=== PATIENT | female | born 1960 | race Caucasian/White ===

== ENCOUNTER 2022-11-22 09:52 | Outpatient (OUT) | payer OTHER, SELFPAY ==
--- NOTE | 2022-11-22 10:04 | MM_ITS ---
Patient: ISA DUMONT Exam Date: 11/22/2022 : 1960 Gender:F Ordering : DR MARIBEL VILLA . Admission #: [id number] Family : Order #: [id number] CLICK HERE TO VIEW EXAM RADIOLOGY REPORT PROCEDURE: MM TOMOSYNTHESIS SCREENING BI COMPARISON: MG MAMM SCREEN 3D LISANDRA CAD, 11/10/2021. MG MAMM SCREEN LISANDRA W CAD, 10/24/2019. MAMMO LISANDRA SCREEN, 12/09/2017. MG MAMM LT UNI W CAD DIG, 10/11/2012. INDICATIONS: Screening mammogram Z12.31 Calculator Name NCI Breast Cancer Risk Assessment Tool 5 Year Breast Cancer Risk 2.90% Lifetime Breast Cancer Risk 11.30% Personal Breast Cancer No Personal Ovarian Cancer No Treatments None Family Cancers Mother with lymphoma cancer at age 67; Grandfather-paternal with lung cancer at age ~60. LOCATION: [facility] BREAST COMPOSITION: Scattered areas fibroglandular density. FINDINGS: DIAGNOSTIC CATEGORY 2--BENIGN FINDING: RIGHT BREAST: No significant suspicious finding. Scattered benign-appearing nodules are present. No significant change has occurred. LEFT BREAST: No significant suspicious finding. Stable biopsy marker clip and mild surrounding architectural distortion within the upper inner quadrant, mid breast. No significant change has occurred. RECOMMENDATIONS: ROUTINE MAMMOGRAM AND CLINICAL EVALUATION IN 12 MONTHS. PLEASE NOTE: A NORMAL MAMMOGRAM DOES NOT EXCLUDE THE POSSIBILITY OF BREAST CANCER. A CLINICALLY SUSPICIOUS PALPABLE LUMP SHOULD BE BIOPSIED. Dictated by: Raffy Weaver M.D. on 11/24/2022 at 09:00 Approved by: Raffy Weaver M.D. on 11/24/2022 at 09:04
== END 2022-11-22 09:53 | disposition home or self-care (01) ==
LOC: MAMMO 09:55
PROVIDERS: PCP Family Medicine; Visit Provider Family Medicine
DX: Z12.31 Encounter for screening mammogram for malignant neoplasm of breast (principal); Z80.1 Family history of malignant neoplasm of trachea, bronchus and lung; Z80.7 Family history of other malignant neoplasms of lymphoid, hematopoietic and related tissues
CPT/HCPCS: 77063; 77067

== ENCOUNTER 2023-10-31 08:52 | Outpatient (OUT) | payer MEDICARE, SELFPAY ==
--- NOTE | 2023-10-31 09:00 | XR_ITS ---
The [address] [address] Patient Name: ISA DUMONT MRN: [id number] date: 1960 Sex: F Assigned Patient Location: [facility] Current Patient Location: [facility] Accession/Order Number: [id number] Exam Date: 10/31/2023 09:02 Report Date: 10/31/2023 09:34 At the request of: MARIBEL VILLA Procedure: XR DEXA axial skeleton EXAMINATION: XR DEXA axial skeleton, 10/31/2023 9:02 AM EDT HISTORY: Screening For Osteoporosis COMPARISON: 2008. TECHNIQUE: Dual-energy X-ray absorptiometry (DEXA) bone density study performed for the axial skeleton. FINDINGS: Bone mineral density AP spine L2-L4 measures 1.193 g/sq cm. T score -0.1. Normal Lowest bone mineral density left femoral neck measures 0.975 g/sq cm. T score -0.5. Normal XR/XR DEXA axial skeleton IMPRESSION: Normal bone mineral density. Low fracture risk Pharmacologic treatment recommendations * No uniform recommendation applies to all patients. Management plans must be individualized. * Consider initiating pharmacologic treatment in postmenopausal women and men >= 50 years of age who have the following: Primary fracture prevention: * T-score <= - 2.5 at the femoral neck, total hip, lumbar spine, 33% radius (some uncertainty with existing data) by DXA. * Low bone mass (osteopenia: T-score between - 1.0 and - 2.5) at the femoral neck or total hip by DXA with a 10-year hip fracture risk >= 3% or a 10-year major osteoporosis-related fracture risk >= 20% (i.e., clinical vertebral, hip, forearm, or proximal humerus) based on the US-adapted FRAXregistered model. Secondary fracture prevention: * Fracture of the hip or vertebra regardless of BMD [4, 5]. * Fracture of proximal humerus, pelvis, or distal forearm in persons with low bone mass (osteopenia: T-score between - 1.0 and - 2.5). The decision to treat should be individualized in persons with a fracture of the proximal humerus, pelvis, or distal forearm who do not have osteopenia or low BMD [12, 13]. Scout MS, Mattie SL, Jose Elias KL, Jennifer EM, Qi KG, AJ, Alfonso ES. The clinician's guide to prevention and treatment of osteoporosis. Osteoporos Int. 2021;33(10):1825-8264. doi: 10.1007/h49752-618-42870-c. Epub 2021Aug 13. Erratum in: Osteoporos Int. 2021Nov 12;: PMID: [id number]; PMCID: [id number]. Electronically authenticated by: LARRY KHAN Date: 10/31/2023 09:34
== END 2023-10-31 08:53 | disposition home or self-care (01) ==
LOC: RAD 08:54
PROVIDERS: PCP Family Medicine; Visit Provider Family Medicine
DX: Z78.0 Asymptomatic menopausal state (principal); Z13.820 Encounter for screening for osteoporosis
CPT/HCPCS: 77080

== ENCOUNTER 2023-11-24 09:47 | Outpatient (OUT) | payer MEDICARE, SELFPAY ==
--- OUTSIDE RECORDS SUMMARY | 2023-11-24 09:50 | XMS_ITS | CCD ---
Author Organization [facility] Care Team Providers Care Rn Hematology Name Role Phone DR MARIBEL VILLA Referring Unavailable DAISY, DR LÓPEZ Attending Unavailable ADISY, DR LÓPEZ Consulting Unavailable DAISY, DR LÓPEZ Primary Care Unavailable DR MARIBEL VILLA Admitting Unavailable DR RAFFY WEAVER Consulting MARIBEL Brennan Attending MARIBEL Brennan Attending MARIBEL Brennan Attending Unavailable Problems Problem Classification Problem Date Documented Date Episodic/Chronic Other screening for suspected conditions (not mental disorders or infectious disease) (4 sources) Encounter for screening mammogram for malignant neoplasm of breast; Translations: [ENC SCR MAMMO MALIG NEOPLASM BREAST] Onset: 11-10-2021 Episodic Residual codes; unclassified (1 source) Family history of malignant neoplasm of trachea, bronchus and lung; Translations: [FAM HX MALIG NEOPLSM TRACH BRON LNG] Onset: 11-14-2021 Episodic Residual codes; unclassified (1 source) Family history of other malignant neoplasms of lymphoid, hematopoietic and related tissues; Translations: [FAM HX OTH MAL ZENA LYMPH HEMATPOETC] Onset: 11-14-2021 Episodic Results Test Name Value Interpretation Reference Range Facil ity MG MAMM SCREEN 3D LISANDRA CADon 11-10-2021 MG MAMM SCREEN 3D LISANDRA CAD Patient: ISA DUMONT. Exam Date: 11/10/2021 : 1960 Gender:F Ordering : DR MARIBEL VILLA . Admission #: [id number] Family : Order #: [id number] CLICK HERE TO VIEW EXAM RADIOLOGY REPORT PROCEDURE: MAMMOGRAM SCREENING 3D BILATERAL CAD COMPARISON: MG MAMM SCREEN LISANDRA W CAD, 10/24/2019. MAMMO LISANDRA SCREEN, 12/09/2017. INDICATIONS: Screening for malignant neoplasm of breast Calculator Name NCI Breast Cancer Risk Assessment Tool 5 Year Breast Cancer Risk 2.80% Lifetime Breast Cancer Risk 11.70% Personal Breast Cancer No Personal Ovarian Cancer No Treatments None Family Cancers Mother with lymphoma cancer at age 67; Grandfather-paternal with lung cancer at age 60. LOCATION: [facility] BREAST COMPOSITION: Scattered areas fibroglandular density. FINDINGS: DIAGNOSTIC CATEGORY 2--BENIGN FINDING: RIGHT BREAST: No significant suspicious finding. Scattered benign-appearing nodules are present. No significant change has occurred. LEFT BREAST: No significant suspicious finding. Scattered benign-appearing nodules are present. Stable biopsy marker clip within upper inner quadrant. No significant change has occurred. RECOMMENDATIONS: ROUTINE MAMMOGRAM AND CLINICAL EVALUATION IN 12 MONTHS. PLEASE NOTE: A NORMAL MAMMOGRAM DOES NOT EXCLUDE THE POSSIBILITY OF BREAST CANCER. A CLINICALLY SUSPICIOUS PALPABLE LUMP SHOULD BE BIOPSIED. Dictated by: Raffy Weaver M.D. on 11/11/2021 at 12:08 Approved by: Raffy Weaver M.D. on 11/11/2021 at 12:39 Normal [facility] Encounters Encounter Date Encounter Type Care Provider Facility Start: 11-08-2023 End: 11-08-2023 ambulatory MARIBEL VILLA Not Available Start: 08-30-2023 End: 08-30-2023 ambulatory MARIBEL VILLA Not Available Start: 05-16-2023 End: 05-16-2023 ambulatory MARIBEL VILLA Not Available Start: 11-10-2021 End: 11-11-[address] MARIBEL VILLA Facility: Payers Date Payer Category Payer Medicare [id number] 2022 Unknown [id number] 1960 Unknown [id number] [id number] 1960 Unknown [id number] 2.16.84 [id number] 1960 Unknown [id number] 2.16.84 [id number] 1960 Unknown [id number] 2.16.84 [id number] Summary Purpose Family History No Family History Records FoundNo Family History Records Found Advance Directives No Advanced Directives Records FoundNo Advanced Directives Records Found Additional Source Comments INFORMATION SOURCE (unrecogn ized section and content) DATE CREATED AUTHOR 11/17/2021 [facility] DATE CREATED AUTHOR 'Jayne ROBLEDO 11/10/2023 [facility] EPIC FOR RECORDS PERTAINING TO PATIENTS WHO ARE OR HAVE BEEN ENROLLED IN A CHEMICAL DEPENDENCY/SUBSTANCEABUSE PROGRAM, SOME INFORMATION MAY BE OMITTED. This clinical summary was aggregated from multiple sources. Caution should be exercised in using it in the provision of clinical care. This summary normalizes information from multiple sources, and as a consequence, information in this document may materially change the coding, format and clinical context of patient data. In addition, data may be omitted in some cases. CLINICAL DECISIONS SHOULD BE BASED ON THE PRIMARY CLINICAL RECORDS. [facility] [employer] provides no warranty or guarantee of the accuracy or completeness of information in this document.
--- NOTE | 2023-11-24 10:22 | MM_ITS ---
Patient Name: ISA DUMONT MR#: [id number] : 1960 Exam Date: 11/24/2023 Ordering Doctor: DR MARIBEL VILLA . RADIOLOGY REPORT PROCEDURE: MM TOMOSYNTHESIS SCREENING BI COMPARISON: MM TOMOSYNTHESIS SCREENING BI, 11/22/2022. MG MAMM SCREEN 3D LISANDRA CAD, 11/10/2021. INDICATIONS: Screening Calculator Name NCI Breast Cancer Risk Assessment Tool 5 Year Breast Cancer Risk 3.00% Lifetime Breast Cancer Risk 11.00% Personal Breast Cancer No Personal Ovarian Cancer No Treatments None Family Cancers Mother with lymphoma cancer at age 67; Grandfather-paternal with lung cancer at age ~60; Brother with colon cancer at age 63; Father with skin cancer at age 75. LOCATION: [facility] BREAST COMPOSITION: There are scattered areas of fibroglandular density. FINDINGS: DIAGNOSTIC CATEGORY 2--BENIGN FINDING. NO CHANGE FROM COMPARISON. Scattered benign-appearing calcifications are present. Scattered benign-appearing lymph nodes are present. RIGHT BREAST: No significant suspicious finding. LEFT BREAST: No significant suspicious finding. RECOMMENDATIONS: ROUTINE MAMMOGRAM AND CLINICAL EVALUATION IN 12 MONTHS. PLEASE NOTE: A NORMAL MAMMOGRAM DOES NOT EXCLUDE THE POSSIBILITY OF BREAST CANCER. A CLINICALLY SUSPICIOUS PALPABLE LUMP SHOULD BE BIOPSIED. Dictated by: David Hernandez MD on 11/24/2023 at 12:40 Approved by: David Hernandez MD on 11/24/2023 at 12:41
== END 2023-11-24 09:48 | disposition home or self-care (01) ==
LOC: MAMMO 09:47
PROVIDERS: PCP Family Medicine; Visit Provider Family Medicine
DX: Z12.31 Encounter for screening mammogram for malignant neoplasm of breast (principal); Z80.7 Family history of other malignant neoplasms of lymphoid, hematopoietic and related tissues; Z80.1 Family history of malignant neoplasm of trachea, bronchus and lung; Z80.0 Family history of malignant neoplasm of digestive organs; Z80.8 Family history of malignant neoplasm of other organs or systems
CPT/HCPCS: 77063; 77067

== ENCOUNTER 2024-10-30 12:34 | Outpatient (OUT) | payer MEDICARE, SELFPAY ==
--- OUTSIDE RECORDS SUMMARY | 2024-10-30 12:37 | XMS_ITS | Encounter Summary ---
Author Organization [facility] Address [address] [place] [address] Care Team Providers Care Qa Intern Name Role Phone Luis iVlla MD Primary Care Provider + [phone] Encounter Details Date Type Department Care Team ([facility] st Contact Info) Description 11/24/2023 [facility] Result Encounter [facility] External Department Unsolicited Luis Villa MD [address] [place] [address] Social History Tobacco Use Types Packs/Day Years Used Date Smoking Tobacco: Never Smokeless Tobacco: Never Alcohol Use Standard Drinks/Week Comments Never 0 (1 standard drink = 0.6 oz pure alcohol) Caffeine intake: 3-4 cups per day of coffee and soda PHQ-2 Answer Date Recorded Patient Health Questionnaire-2 Score 2 08/30/2023 Education Answer Date Recorded What is the highest level of school you have completed or the highest degree you have received? Some college, no degree 09/29/2022 Comments No Sex and Gender Information Value Date Recorded Sex Assigned at Not on file Legal Sex Female 6:40 PM EDT Gender Identity Not on file Sexual Orientation Not on file Occupation Industry Job Start Date Job End Date Retired Not on file Not on file Not on file documented as of this encounter Plan of Treatment Not on file documented as of this encounter Procedures Procedure Name Priority Date/Time Associated Diagnosis Comments MM TOMOSYNTHESIS SCREENING BI 11/24/2023 12:41 PM EDT documented in this encounter Results * MM TOMOSYNTHESIS SCREENING BI (11/24/2023 12:41 PM EDT) Anatomical Region Laterality Modality Other 11/24/2023 12:4 1 PM EDT Narrative 11/24/2023 12:42 PM EDT The [address] [address] Mammography Report Signed Patient: ISA CARDOZA MR#: [id number] : 1960 Acct:[id number] Age/Sex: 63 / F ADM Date: 11/24/23 Loc: MAMMO Attending Dr: LUIS VILLA Ordering Physician: LUIS VILLA Results: Date of Service: 11/24/23 Follow Up: Procedure(s): MM tomosynthesis screening BI Accession Number(s): [id number] cc: LUIS VILLA Patient Name: ISA CARDOZA MR#: [id number] : 1960 Exam Date: 11/24/2023 Ordering Doctor: DR LUIS VILLA . RADIOLOGY REPORT PROCEDURE: MM TOMOSYNTHESIS SCREENING BI COMPARISON: MM TOMOSYNTHESIS SCREENING BI, 11/22/2022. MG MAMM SCREEN 3D LISANDRA CAD, 11/10/2021. INDICATIONS: Screening Calculator Name NCI Breast Cancer Risk Assessment Tool 5 Year Breast Cancer Risk 3.00% Lifetime Breast Cancer Risk 11.00% Personal Breast Cancer No Personal Ovarian Cancer No Treatments None Family Cancers Mother with lymphoma cancer at age 67; Grandfather-paternal with lung cancer at age 60; Brother with colon cancer at age 63; Father with skin cancer at age 75. LOCATION: [facility] BREAST COMPOSITION: There are scattered areas of fibroglandular density. FINDINGS: DIAGNOSTIC CATEGORY 2--BENIGN FINDING. NO CHANGE FROM COMPARISON. Scattered benign-appearing calcifications are present. Scattered benign-appearing lymph nodes are present. RIGHT BREAST: No significant suspicious finding. LEFT BREAST: No significant suspicious finding. RECOMMENDATIONS: ROUTINE MAMMOGRAM AND CLINICAL EVALUATION IN 12 MONTHS. PLEASE NOTE: A NORMAL MAMMOGRAM DOES NOT EXCLUDE THE POSSIBILITY OF BREAST CANCER. A CLINICALLY SUSPICIOUS PALPABLE LUMP SHOULD BE BIOPSIED. Dictated by: David Hernandez MD on 11/24/2023 at 12:40 Approved by: David Hernandez MD on 11/24/2023 at 12:41 Dictated By: David Hernandez M.D. Signed By: 11/24/23 1242 DD/ 1241 TD/TT: Hand Bootmaker: Procedure Note Radiology, Radiologist, - 11/24/2023 [place] [address] Mammography Report Signed Patient: ISA CARDOZA JMR#: [id number] : 9Acct:[id number] Age/Sex: 63 / FADM Date: 11/24/23 Loc: MAMMO Attending Dr: LUIS VILLA Ordering Physician: LUIS VILLAResults: Date of Service: 11/24/23Follow Up: Procedure(s): MM tomosynthesis screening BI Accession Number(s): [id number] cc: LUIS VILLA Patient Name: ISA CARDOZA MR#: [id number] : 1960 Exam Date: 11/24/2023 Ordering Doctor: DR LUIS VILLA . RADIOLOGY REPORT PROCEDURE: MM TOMOSYNTHESIS SCREENING BI COMPARISON: MM TOMOSYNTHESIS SCREENING BI, 11/22/2022. MG MAMM MDWAEN3A LISANDRA CAD, 11/10/2021. INDICATIONS: Screening Calculator Name NCI Breast Cancer Risk Assessment Tool 5 Year Breast Cancer Risk 3.00% Lifetime Breast Cancer Risk 11.00% Personal Breast Cancer No Personal Ovarian Cancer No Treatments None Family Cancers Mother with lymphoma cancer at age 67;Grandfather-paternal with lung cancer at age 60; Brother with colon cancer at age 63; Father with skin cancer at age 75. LOCATION: [facility] BREAST COMPOSITION: There are scattered areas of fibroglandulardensity. FINDINGS: DIAGNOSTIC CATEGORY 2--BENIGN FINDING. NO CHANGE FROM COMPARISON.Scattered benign-appearing calcifications are present. Scattered benign-appearinglymph nodes are present. RIGHT BREAST: No significant suspicious finding. LEFT BREAST: No significant suspicious finding. RECOMMENDATIONS: ROUTINE MAMMOGRAM AND CLINICAL EVALUATION IN 12 MONTHS. PLEASE NOTE: A NORMAL MAMMOGRAM DOES NOT EXCLUDE THE POSSIBILITY OFBREAST CANCER. A CLINICALLY SUSPICIOUS PALPABLE LUMP SHOULD BE BIOPSIED. Dictated by: David Hernandez MD on 11/24/2023 at 12:40 Approved by: David Hernandez MD on 11/24/2023 at 12:41 Dictated By: David Hernandez M.D. Signed By:11/24/23 1242 DD/ 1241 TD/TT: Hand Bootmaker: us Luis Villa MD [facility] Final Resu lt documented in this encounter Visit Diagnoses Not on filedocumented in this encounter Additional Health Concerns Assessment Noted Time PHQ-9 Depression Total Score: 10 024 9:00 AM EDT documented as of this encounter Care Teams Qa Intern Relationship Specialty Start Date End Date Luis Villa MD PCP - General Family Medicine 09/22/22 documented as of this encounter
--- OUTSIDE RECORDS SUMMARY | 2024-10-30 12:37 | XMS_ITS | Encounter Summary ---
Author Organization [facility] Address [address] [place] [address] Care Team Providers Care Director Of Product Development Name Role Phone Luis Mcnally MD Primary Care Provider [phone] Encounter Details Date Type Department Care Team ([facility] st Contact Info) Description 09/06/2023 Orders Only [facility] [address] [place] [id number] Amber Diego TORY Screening for osteoporosis; Post menopausal syndrome; Encounter for wellness examination in adult; Encounter for screening mammogram for malignant neoplasm of breast Social History Tobacco Use Types Packs/Day Years [...] Procedure Name Priority Date/Time Associated Diagnosis Comments MAMMO 3D,BILATERAL SCREENING MAMMOGRAM WITH TOMOSY Routine 11/22/2022 9:38 AM EDT documented in this encounter Results * MAMMO 3D,BILATERAL SCREENING MAMMOGRAM WITH TOMOSY (11/22/2022 9:38 AM EDT) Anatomical Region Laterality Modality Radiographic Rosario ging us Luis Mcnally MD IMG XR PROCEDURES Final Resu lt documented in this encounter Visit Diagnoses Diagnosis Screening for osteoporosis Special screening for osteoporosis Post menopausal syndrome Asymptomatic postmenopausal status (age-related) (natural) Encounter for wellness examination in adult Encounter for screening mammogram for malignant neoplasm of breast documented in this encounter Additional Health Concerns Assessment Noted Time PHQ-9 Depression Total Score: 10 024 9:00 AM EDT documented as of this encounter Care Teams Director Of Product Development Relationship Specialty Start Date End Date Luis Mcnally MD PCP - General Family Medicine 09/22/22 documented as of this encounter
--- OUTSIDE RECORDS SUMMARY | 2024-10-30 12:37 | XMS_ITS | Encounter Summary ---
Author Organization [facility] Address [address] [place] [address] Care Team Providers Care Mechanical Integrity Engineer Name Role Phone Luis Mcnally MD Primary Care Provider [phone] Encounter Details Date Type Department Care Team (Late st Contact Info) Description 11/22/2022 Abstract [facility] [address] [place] [address] Luis Mcnally MD [address] [place] [address] Social History Tobacco Use Types Packs/Day Years Used Date Smoking Tobacco: Never Smokeless Tobacco: Never Alcohol Use Standard Drinks/Week Comments Never 0 (1 standard drink = 0.6 oz pure alcohol) Caffeine intake: 3-4 cups per day of coffee and soda PHQ-2 Answer Date Recorded Patient Health Questionnaire-2 Score 0 10/25/2022 Education Answer Date Recorded What is the [...] file Not on file Not on file COVID-19 Exposure Response Date Recorded In the last 10 days, have yo u been in contact with someone who was confirmed or suspected to have Coronavirus/COVID-19? No / Unsure 10/25/2022 10:30 AM EDT documented as of this encounter Plan of Treatment Not on file documented as of this encounter Visit Diagnoses Not on filedocumented in this encounter Care Teams Mechanical Integrity Engineer Relationship Specialty Start Date End Date Luis Mcnally MD PCP - General Family Medicine 09/22/22 documented as of this encounter
--- OUTSIDE RECORDS SUMMARY | 2024-10-30 12:37 | XMS_ITS | Clinical Summary ---
Author Organization [facility] Address [address] [place] [address] Care Team Providers Care Shade Matcher Name Role Phone Luis Villa MD Primary Care Provider + [phone] Allergies Active Allergy Reactions Criticality Noted Date Comments Cephalexin Rash Low 09/28/2022 Glycerin Low 09/28/2022 Other Reaction(s): Unknown Medications cholecalciferol (Vitamin D-3) 25 MCG (1000 UT) capsule Take 1 capsule by mouth 1 (one) time each day at the same time. Active ibuprofen 200 MG tablet Take 200 mg by mouth every 8 (eight) hours if needed for moderate pain. Active Multiple Vitamin (multivitamin) capsule Take 1 capsule by mouth in the morning. Active fexofenadine (Karla) 180 MG tablet Take 180 mg by mouth in the morning. Active Misc Natural Products (ELDERBERRY ZINC/VIT C/IMMUNE MT) Use 1 tablet in the mouth or throat in the morning. Active albuterol HFA 90 mcg/act inhalerIndications :Asthma Inhale 1 puff in the morning and 1 puff at noon and 1 puff in the evening and 1 puff before bedtime. 18 g 5 3 Active FIBER, GUAR GUM, PO Take 4 g by mouth Daily Active montelukast (Singulair) 10 MG tabletIndications: Mild intermittent asthma without complication (HCC) Take 1 tablet (10 mg) by mouth at bedtime 90 tablet 1 5 025 Active atorvastatin (Lipitor) 80 MG tabletIndications: Mixed hyperlipidemia Take 1 tablet (80 mg) by mouth at bedtime 90 tablet 1 5 025 Active azelastine (Astelin) 0.1 % nasal sprayIndications:N on-seasonal allergic rhinitis, unspecified trigger Administer 2 sprays into each nostril in the morning and 2 sprays before bedtime. 90 mL 1 5 025 Active Active Problems Problem Noted Date Diagnosed Date Body mass index (BMI) 40.0-44.9, adult 4 Allergic rhinitis 09/28/2022 Chronic eczema 09/28/2022 Low HDL (under 40) 09/28/2022 Mild intermittent asthma without complication Mixed hyperlipidemia 09/28/2022 Morbid (severe) obesity due to excess calories 0 09/28/2022 NAFLD (nonalcoholic fatty liver disease) 023 Post menopausal syndrome 09/28/2022 Postmenopausal atrophic vaginitis 09/28/2022 Pronation deformity of right foot 09/28/2022 Resolved Problems Problem Noted Date Diagnosed Date Resolved Date Hearing loss of right ear 09/28/2022 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 08/30/2023 Encounters Date Type Department Care Team Description 08/30/2024 10:00 AM EDT Office Visit [facility] [address] [place] [address] Luis Villa MD Encounter for Medicare annual wellness exam (Primary Dx); Advance directive in chart; Encounter for screening for other disorder; Screening for alcohol problem; Screening mammogram, encounter for; Morbid (severe) obesity due to excess calories ([facility]); Heart murmur; Palpitations; Mild intermittent asthma without complication (HCC); Body mass index (BMI) 40.0-44.9, adult ([facility]); Mixed hyperlipidemia ; Low HDL (under 40) 08/30/2024 Bamboo flowsheet [facility] [address] [place] [address] Luis Villa MD 08/30/2024 Travel from Last 3 Months Immunizations Immunization Administration Dates Next Due Influenza, High Dose Seasona l, Preservative Free 02/07/2017 Influenza, injectable, quadr ivalent, preservative free 01/11/2020,02/12/2019,02/05/2018,2014 Influenza, seasonal, injectable 01/20/2021 Zoster, Recombinant 04/04/2021,02/03/2021 Family History Medical History Relation Name Comments CABG Brother leaky valve Coronary artery disease Brother Michel Mathews Brother Heart disease Brother Other cancer Brother cancerous tumor removed from appendix Kidney disease Father Liver disease Father CABG Mother Cancer Mother Heart disease Mother Lymphoma Mother Drug abuse Other Opiate addict - clean and sober Colon cancer Paternal Great-Grandmother Hyperlipidemia Son Breast cancer Neg Hx Ovarian cancer Neg Hx Relation Name Status Comments Brother 2 brothers Father Alive Mother Alive Other Paternal Great-Grandmother Alive Son Alive Family h/o Social History Tobacco Use Types Packs/Day Years Used Date Smoking Tobacco: Never Smokeless Tobacco: Never Tobacco Cessation:Counseling Given: Yes Alcohol Use Standard Drinks/Week Comments Never 0 (1 standard drink = 0.6 oz pure alcohol) Caffeine intake: 3-4 cups per day of coffee and soda PHQ-2 Answer Date Recorded Patient Health Questionnaire-2 Score 1 08/30/2024 Education Answer Date Recorded What is the [...] file Not on file Not on file Last Filed Vital Signs Vital Sign Reading Time Taken Comments Blood Pressure 120/70 08/30/2024 10:01 AM EDT Pulse 72 08/30/2024 10:01 AM EDT Temperature - - Respiratory Rate - - Oxygen Saturation 96% 08/30/2024 10:01 AM EDT Inhaled Oxygen Concentration - - Weight 106 kg (234 lb 8 oz) 08/30/2024 10:01 AM EDT Height 161.3 cm (5' 3.5 ) 08/30/2024 10:01 AM ED T Body Mass Index 40.89 08/30/2024 10:01 AM EDT Plan of Treatment Health Maintenance Due Date Last Done Comments CT Colonography 1960 FIT-DNA 1960 FOBT 1960 Sigmoidoscopy 1960 Mammogram 11/23/2024 11/24/2023, 08/0 10/2022, 11/10/2021, Additional history exists Influenza Vaccine (#1) 2024 , 01/11/2020, 02/12/2019, Additional history exists FIT 02/01/2025 02/02/2024 Pneumococcal Vaccine: 65+ Years (1 of 2 - PCV) 08/23/2025 Postponed from 1977 (Patient Refused) Medicare Annual Wellness (AWV) 08/30/2025 08/30/2024, 08/30/2023, 09/28/2022 Colonoscopy 01/05/2032 01/04/2022, 10/17, 09/26/2008 Colorectal Cancer Screening 01/05/2032 Procedures Procedure Name Priority Date/Time Associated Diagnosis Comments FECAL IMMUNOCHEMICAL Routine 02/02/2024 7:51 AM EDT MM TOMOSYNTHESIS SCREENING BI 11/24/2023 12:41 PM EDT COLONOSCOPY Routine 01/04/2022 12:00 PM EDT Encounter for screening for malignant neoplasm of colon from Last 3 Months or Most Recently Relevant to Health Maintenance Results * Fecal immunochemical (02/02/2024 7:51 AM EDT) Stool Rectal contents / Unknown us Noms Provider Unallocated MD LAB BODY FLUIDS AND STOOLS ORDERABLES Final Result * MM TOMOSYNTHESIS SCREENING BI (11/24/2023 12:41 PM EDT) Anatomical Region Laterality Modality Other 11/24/2023 12:4 1 PM EDT Narrative 11/24/2023 12:42 PM EDT [address] [address] Mammography Report Signed Patient: ISA CARDOZA MR#: [id number] : 1960 Acct:[id number] Age/Sex: 63 / F ADM Date: 11/24/23 Loc: MAMMO Attending Dr: LUIS VILLA Ordering Physician: LUIS VILLA Results: Date of Service: 11/24/23 Follow Up: Procedure(s): MM tomosynthesis screening BI Accession Number(s): [id number] cc: LUIS VILLA Patient Name: ISA CARDOZA MR#: [id number] : 1960 Exam Date: 11/24/2023 Ordering Doctor: [...] skin cancer at age 73. LOCATION: [facility] BREAST COMPOSITION: There are scattered areas of [...] Signed By: 11/24/23 1242 DD/ 1241 TD/TT: Radiation Officer: Procedure Note Radiology, Radiologist, - 11/24/2023 [place] [address] Mammography Report Signed Patient: ISA CARDOZA JMR#: [id number] : 9Acct:[id number] Age/Sex: 63 / FADM Date: 11/24/23 Loc: MAMMO Attending Dr: LUIS VILLA Ordering Physician: LUIS VILLAResults: Date of Service: 11/24/23Follow Up: Procedure(s): MM tomosynthesis screening BI Accession Number(s): [id number] cc: LUIS VILLA Patient Name: ISA CARDOZA MR#: [id number] : 1960 Exam Date: 11/24/2023 Ordering Doctor: DR LUIS VILLA . RADIOLOGY REPORT PROCEDURE: MM TOMOSYNTHESIS SCREENING BI COMPARISON: MM TOMOSYNTHESIS SCREENING BI, 11/22/2022. MG MAMM [id number] LISANDRA CAD, 11/10/2021. INDICATIONS: Screening Calculator Name [...] skin cancer at age 73. LOCATION: [facility] BREAST COMPOSITION: There are scattered areas of [...] M.D. Signed By:11/24/23 1242 DD/ 1241 TD/TT: Radiation Officer: us Luis Villa MD [facility] Final Resu lt * Colonoscopy (01/04/2022 12:00 PM EDT) Anatomical Region Laterality Modality Endoscopy 01/04/2022 12:0 0 PM EDT Narrative 01/04/2022 12:00 PM EDT PERFORMED AT [facility] LOCATION:[id number] Procedure Note CONVERSION, GENERIC - 09/01/2022 PERFORMED AT [facility] LOCATION:[id number] Tang Suzan Isidoro DO ENDOSCOPY PROCEDURE ORDER RAN Final Result from Last 3 Months or Most Recently Relevant to Health Maintenance Insurance [employer] Advance Directives Documents on File Type Date Recorded Patient Grooming Assistant Expl anation Power of Lactation Consultant 05/16/2023 9:27 AM 03-31 Power Of Lactation Consultant Advance Directives and Living Will 05/16/2023 9:26 AM 2009-09-17 Living Wi Care Teams Shade Matcher Relationship Specialty Start Date End Date Luis Villa MD PCP - General Family Medicine 09/22/22
--- OUTSIDE RECORDS SUMMARY | 2024-10-30 12:37 | XMS_ITS | Clinical Summary ---
Author Organization [employer] tem Address [id number] [address] [place] [address] Care Team Providers Care Geriatrics Physician Name Role Phone Unavailable Primary Care Provider Unavailabl e Immunizations Immunization Administration Dates Next Due COVID-19, mRNA, LNP-S, PF, 100mcg/0.5mL Dose ,07/04/2020 Social History Tobacco Use Types Packs/Day Years Used Date Smoking Tobacco: Never Assessed Childcare Answer Date Recorded Childcare Unknown 07/02/2020 Employment Answer Date Recorded Employment Unknown 07/02/2020 Purpose - Life Answer Date Recorded Purpose and direction in life Unknown Comments Unknown Sex and Gender Information Value Date Recorded Sex Assigned at Not on file Legal Sex Female 12:08 PM EDT Gender Identity Not on file Sexual Orientation Not on file Plan of Treatment Health Maintenance Due Date Last Done Comments Depression Screening 1970 Tobacco Screening 1970 Adult BMI Screening 1976 DTaP,Tdap and Td Vaccines (1 - Tdap) 1977 Zoster (Shingles) Vaccine (1 of 2) 2008 Fall Risk Screening 08/17/2023 COVID-19 Vaccine (3 - 2023-2 5 season) 2023 08/01/2020, 07/04/2020 Influenza Vaccine 12/17/2024 01/11/2020, , 02/05/2018, Additional history exists Medical Devices Not on file Insurance [employer]
--- OUTSIDE RECORDS SUMMARY | 2024-10-30 12:37 | XMS_ITS | Encounter Summary ---
Author Organization [facility] Address [address] [place] [address] Care Team Providers Care Digital Sales Assistant Name Role Phone Luis Mcnally MD Primary Care Provider + [phone] Encounter Details Date Type Department Care Team ([facility] st Contact Info) Description 02/15/2024 Orders Only [facility] [address] [facility] [address] [place] [address] Unallocated, Noms Provider, [address] [place] [address] Social History Tobacco Use Types Packs/Day Years [...] FECAL IMMUNOCHEMICAL Routine 02/02/2024 7:51 AM EDT documented in this encounter Results * Fecal immunochemical (02/02/2024 7:51 AM EDT) Stool Rectal contents / Unknown us Noms Provider Unallocated LAB BODY FLUIDS AND STOOLS ORDERABLES Final Result documented in this encounter Visit Diagnoses Not on filedocumented in this encounter Additional Health Concerns Assessment Noted Time PHQ-9 Depression Total Score: 10 08/29/ 024 9:00 AM EDT documented as of this encounter Care Teams Digital Sales Assistant Relationship Specialty Start Date End Date Luis Mcnally MD PCP - General Family Medicine 09/22/22 documented as of this encounter
--- OUTSIDE RECORDS SUMMARY | 2024-10-30 12:37 | XMS_ITS | Encounter Summary ---
Author Organization [facility] Address [address] [place] [address] Care Team Providers Care Director Independent Name Role Phone Luis Mcnally MD Primary Care Provider [phone] Reason for Visit * Reason Comments Med Refill Encounter Details Date Type Department Care Team (Late st Contact Info) Description 12/13/2023 Refill [facility] [address] [place] [address] Luis Mcnally MD [address] [place] [id number] Mild intermittent asthma without complication (HCC) Social History Tobacco Use Types Packs/Day Years [...] documented as of this encounter Visit Diagnoses Diagnosis Mild intermittent asthma without complication (HCC) documented in this encounter Additional Health Concerns Assessment Noted Time PHQ-9 Depression Total Score: 10 024 9:00 AM EDT documented as of this encounter Care Teams Director Independent Relationship Specialty Start Date End Date Luis Mcnally MD PCP - General Family Medicine 09/22/22 documented as of this encounter
--- OUTSIDE RECORDS SUMMARY | 2024-10-30 12:37 | XMS_ITS | Encounter Summary ---
Author Organization [facility] Address [address] [place] [address] Care Team Providers Care Senior Advisor Name Role Phone Luis Villa MD Primary Care Provider + [phone] Encounter Details Date Type Department Care Team ([facility] st Contact Info) Description 10/31/2023 Clinisync Result Encounter [facility] External Department Unsolicited Luis Villa MD [address] [facility] [address] [place] [address] Social History Tobacco Use Types Packs/Day Years [...] Procedure Name Priority Date/Time Associated Diagnosis Comments XR DEXA AXIAL SKELETON 10/31/2023 9:34 AM EDT documented in this encounter Results * XR DEXA AXIAL SKELETON (10/31/2023 9:34 AM EDT) Anatomical Region Laterality Modality Other 10/31/2023 9:34 AM EDT Narrative 10/31/2023 9:36 AM EDT [address] [address] XRay Report Signed Patient: ISA CARDOZA MR#: [id number] : 1960 Acct:[id number] Age/Sex: 63 / F ADM Date: 10/31/23 Loc: RAD Attending Dr: LUIS VILLA Ordering Physician: LUIS VILLA Date of Service: 10/31/23 Procedure(s): XR DEXA axial skeleton Accession Number(s): [id number] cc: LUIS VILLA [address] [address] Patient Name: ISA CARDOZA MRN: [id number] date: 1960 Sex: F Assigned Patient Location: RAD Current Patient Location: RAD Accession/Order Number: [id number] Exam Date: 10/31/2023 09:02 Report Date: 10/31/2023 09:34 At the request of: LUIS VILLA Procedure: XR DEXA axial skeleton EXAMINATION: XR DEXA axial skeleton, 10/31/2023 9:02 AM EDT HISTORY: Screening For Osteoporosis COMPARISON: 2008. TECHNIQUE: Dual-energy X-ray absorptiometry (DEXA) bone density study performed for the axial skeleton. FINDINGS: Bone mineral density AP spine L2-L4 measures 1.193 g/sq cm. T score -0.1. Normal Lowest bone mineral density left femoral neck measures 0.975 g/sq cm. T score -0.5. Normal XR/XR DEXA axial skeleton IMPRESSION: Normal bone mineral density. Low fracture risk Pharmacologic treatment recommendations * No uniform recommendation applies to all patients. Management plans must be individualized. * Consider initiating pharmacologic treatment in postmenopausal women and men >= 50 years of age who have the following: Primary fracture prevention: * T-score <= - 2.5 at the femoral neck, total hip, lumbar spine, 33% radius (some uncertainty with existing data) by DXA. * Low bone mass (osteopenia: T-score between - 1.0 and - 2.5) at the femoral neck or total hip by DXA with a 10-year hip fracture risk >= 3% or a 10-year major osteoporosis-related fracture risk >= 20% (i.e., clinical vertebral, hip, forearm, or proximal humerus) based on the US-adapted FRAXregistered model. Secondary fracture prevention: * Fracture of the hip or vertebra regardless of BMD [4, 5]. * Fracture of proximal humerus, pelvis, or distal forearm in persons with low bone mass (osteopenia: T-score between - 1.0 and - 2.5). The decision to treat should be individualized in persons with a fracture of the proximal humerus, pelvis, or distal forearm who do not have osteopenia or low BMD [12, 13]. Scout MS, Mattie SL, Jose Elias KL, Jennifer EM, Qi KG, AJ, Alfonso ES. The clinician's guide to prevention and treatment of osteoporosis. Osteoporos Int. 2021;33(10):4212-6711. doi: 10.1007/e08677-873-22608-f. Epub 2021Aug 13. Erratum in: Osteoporos Int. 2021Nov 12;: PMID: 23915314; PMCID: [id number]. Electronically authenticated by: LARRY KHAN Date: 10/31/2023 09:34 Dictated By: Larry Khan M.D. Signed By: 10/31/2336 DD/ TD/TT: Primary School Principal: Procedure Note Radiology, Radiologist, - 10/31/2023 [place] [address] XRay Report Signed Patient: ISA CARDOZA JMR#: [id number] : 9Acct:[id number] Age/Sex: 63 / FADM Date: 10/31/23 Loc: RAD Attending Dr: LUIS VILLA Ordering Physician: LUIS VILLA Date of Service: 10/31/23 Procedure(s): XR DEXA axial skeleton Accession Number(s): [id number] cc: LUIS VILLA [address] [place] [address] Patient Name: ISA CARDOZA MRN: [id number] date: 1960 Sex: F Assigned Patient Location: [facility] Current Patient Location: [facility] Accession/Order Number: [id number] Exam Date: 10/31/2023 09:02 Report Date: 10/31/2023 09:34 At the request of: LUIS VILLA Procedure: XR DEXA axial skeleton EXAMINATION: XR DEXA axial skeleton, 10/31/2023 9:02 AM EDT HISTORY: Screening For Osteoporosis COMPARISON: 2008. TECHNIQUE: Dual-energy X-ray absorptiometry (DEXA) bone density study performed for the axial skeleton. FINDINGS: Bone mineral density AP spine L2-L4 measures 1.193 g/sq cm. T score -0.1. Normal Lowest bone mineral density left femoral neck measures 0.975 g/sq cm. Tscore -0.5. Normal XR/XR DEXA axial skeleton IMPRESSION: Normal bone mineral density. Low fracture risk Pharmacologic treatment recommendations * No uniform recommendation applies to all patients. Management plans mustbe individualized. * Consider initiating pharmacologic treatment in postmenopausal women andmen >= 50 years of age who have the following: Primary fracture prevention: * T-score <= - 2.5 at the femoral neck, total hip, lumbar spine, 33%radius (some uncertainty with existing data) by DXA. * Low bone mass (osteopenia: T-score between - 1.0 and - 2.5) at thefemoral neck or total hip by DXA with a 10-year hip fracture risk >= 3% or t77-exlh major osteoporosis-related fracture risk >= 20% (i.e., clinical vertebral, hip, forearm, or proximal humerus) based on the US-adapted FRAXregisteredmodel. Secondary fracture prevention: * Fracture of the hip or vertebra regardless of BMD [4, 5]. * Fracture of proximal humerus, pelvis, or distal forearm in persons withlow bone mass (osteopenia: T-score between - 1.0 and - 2.5). The decision totreat should be individualized in persons with a fracture of the proximalhumerus, pelvis, or distal forearm who do not have osteopenia or low BMD [12, 13]. Scout MS, Mattie SL, Jose Elias DORADO, Jennifer EM, Qi KG, AJ,Alfonso ES. The clinician's guide to prevention and treatment of osteoporosis.Osteoporos Int. 2021;33(10):6053-9116. doi: 10.1007/d73435-170-60575-a. Epub . Erratum in: Osteoporos Int. 2021Nov 12;: PMID: 88360253; PMCID: [id number]. Electronically authenticated by: LARRY KHAN Date: 10/31/2023 09:34 Dictated By: Larry Khan M.D. Signed By:10/31/2336 DD/ 3 TD/TT: Primary School Principal: us Luis Villa MD [facility] Final Resu lt documented in this encounter Visit Diagnoses Not on filedocumented in this encounter Additional Health Concerns Assessment Noted Time PHQ-9 Depression Total Score: 10 024 9:00 AM EDT documented as of this encounter Care Teams Senior Advisor Relationship Specialty Start Date End Date Luis Villa MD PCP - General Family Medicine 09/22/22 documented as of this encounter
--- NOTE | 2024-10-30 13:00 | CA_ITS ---
Patient Name: ISA DUMONT MR#: [id number] : 1960 Exam Date: 10/30/2024 Ordering Doctor: DR MARIBEL VILLA . ECHOCARDIOGRAM REPORT PROCEDURE: CA ECHO DOPPLER COMPLETE INDICATIONS: Heart murmur, palpitations COMPARISON: None. DESCRIPTION: COMPLETE ECHOCARDIOGRAM Real-time transthoracic echocardiography with 2D, M-mode, spectral and color flow Doppler performed. QUALITY: Technical quality was good. LEFT VENTRICLE: Normal chamber size. Normal left ventricular wall thickness. LV EF: Global left ventricular systolic function is hyperdynamic; visually estimated ejection fraction is 65-70%. No significant wall motion abnormalities. DIASTOLIC: Normal diastolic function. ATRIAL SEPTUM: Visually appears intact. LEFT ATRIUM: Normal chamber size. RIGHT ATRIUM: Normal chamber size. RIGHT VENTRICLE: Normal chamber size. Normal right ventricular systolic function. TRICUSPID VALVE: Normal mobility and thickness. No stenosis with trivial regurgitation. Doppler studies reveal mildly (35-45) elevated right-sided pressures. RVSP 36 mmHg MITRAL VALVE: Normal mobility and thickness. No evidence of mitral valve stenosis. There is no mitral annular calcification. Trivial mitral regurgitation. AORTIC VALVE: Normal trileaflet appearance. No visible sclerosis. Normal leaflet mobility. No evidence of aortic valve stenosis. No aortic regurgitation. AORTIC ROOT: Normal diameter and appearance. Ascending aorta is normal in size. PULMONIC VALVE: Normal thickness and mobility. No stenosis. No regurgitation. PERICARDIUM: Anterior free space; trivial effusion versus fat pad. IVC: Collapses with inspiration. IVC is normal in size. CONCLUSION: 1. Global left ventricular systolic function is hyperdynamic; visually estimated ejection fraction is 65 to 70% 2. Normal right ventricular size and systolic function 3. Normal diastolic function 4. The left atrium is normal in size 5. No significant valvular abnormalities 6. Anterior free space; trivial effusion versus fat pad Adult Echocardiography Procedure Report Left Ventricle LVEDD (3.7 - 5.6 cm): 4.65 cm LVESD (2.2 - 4.0 cm): 2.75 cm LVIVS thickness (0.6 - 1.2 cm): 0.98 cm LVPW thickness (0.5 - 1.0 cm): 0.93 cm e': 0.11 m/s E - e': 6.59 LVOT Max Gradient: 6.87 mm[Hg] LVOT Area (cm2): 1.31 m/s Peak Velocity (LVOT): 1.31 m/s Mean Velocity (LVOT): 0.85 m/s LVOT Diameter 2.03 cm Left Ventricular Ejection Fraction: 73.39 % Left Atrium LA Volume Index (2D A2C): 26.89 ml/m2 Left Atrium Systolic Dimension: 4.24 cm Mitral Valve MV E to A Ratio: 0.93 Mitral Valve A-Wave Peak Velocity: 0.80 m/s Mitral Valve E-Wave Peak Velocity: 0.74 m/s Right Ventricle Aorta AO Root Diam: 3.37 cm Ascending Ao Diam: 2.95 cm Aortic Valve AoV Area (Peak Cristian): 2.29 cm2, 2.29 cm2 AoV Area (VTI): 2.46 cm2, 2.46 cm2 Peak Velocity(Antegrade Flow): 1.86 m/s Peak Gradient(Antegrade Flow): 13.83 mm[Hg] Mean Velocity(Antegrade Flow): 1.26 m/s Mean Gradient(Antegrade Flow): 7.34 mm[Hg] Velocity Time Integral: 40.40 cm Tricuspid Valve Peak Velocity (Regurgitant Flow): 2.87 m/s Pulmonic Valve Peak Velocity: 1.19 m/s Peak Gradient: 5.70 mm[Hg] Right Atrium Right Atrium Systolic Pressure: 30.92 ml, 30.92 ml Dictated by: Zak Rodrigues M.D. on 10/31/2024 at 17:44 Approved by: Zak Rodrigues M.D. on 10/31/2024 at 17:48
== END 2024-10-30 12:35 | disposition home or self-care (01) ==
LOC: CARD 12:35
PROVIDERS: PCP Family Medicine; Visit Provider Family Medicine
DX: R01.1 Cardiac murmur, unspecified (principal); R00.2 Palpitations
CPT/HCPCS: 93306

== ENCOUNTER 2024-11-28 08:39 | Outpatient (OUT) | payer MEDICARE, SELFPAY ==
--- OUTSIDE RECORDS SUMMARY | 2024-11-28 08:43 | XMS_ITS | CCD ---
Author Organization [place] [facility] Care Team Providers Care Director Product Development Name Role Phone DR LUIS VILLA Referring Unavailable DAISY, DR LÓPEZ Attending Unavailable DAISY, DR LÓPEZ Consulting Unavailable DR LUIS VILLA Primary Care Unavailable DAISY, DR LÓPEZ Admitting Unavailable DR RAFFY WEAVER Consulting Unavailable Luis Villa MD Primary Care Provider LUIS VILLA Attending Unavailable LUIS VILLA Attending Unavailable LUIS VILLA Attending Unavailable Allergies Allergy Classification Reported Allergen(s) Allergy Type Date of Onset Reaction(s) Facility (8 sources) Cephalexin Drug Allergy 09-28-2022 Rash [facility] Healthcare (8 sources) Glycerin Drug Allergy 09-28-2022 [facility] Medications Current Medications Medication Drug Class(es) Dates Sig (Normalized) Sig (Original) [id number] 200 actuat albuterol 0.09 mg/actuat metered dose inhaler (8 sources) beta2-Adrenergic Agonist Start: 10-25-2022 albuterol HFA 90 mcg/act inhaler Indications: Asthma Inhale 1 puff in the morning and 1 puff at noon and 1 puff in the evening and 1 puff before bedtime. 18 g 5 10/25/2022 Active atorvastatin 80 mg oral tablet (12 sources) HMG-CoA Reductase Inhibitor Start: 04-06-2024 End: 05-08-2024 take 1 tablet by mouth in the morning atorvastatin (Lipitor) 40 MG tablet Take 40 mg by mouth in the morning. 04/06/2024 05/08/2024 Discontinued (Other) Start: 11-29-2023 End: 11-04-2024 take 1 tablet by mouth at bedtime atorvastatin (Lipitor) 80 MG tablet Indications: Mixed hyperlipidemia Take 1 tablet (80 mg) by mouth at bedtime 90 tablet 1 05/08/2024 11/04/2024 Active azelastine hydrochloride 0.137 mg/actuat metered dose nasal spray (10 sources) Histamine-1 Receptor Antagonist Start: 11-08-2023 End: 11-04-2024 take 2 spray(s) nasal route in the morning azelastine (Astelin) 0.1 % nasal spray Indications: Non-seasonal allergic rhinitis, unspecified trigger Administer 2 sprays into each nostril in the morning and 2 sprays before bedtime. 90 mL 1 05/08/2024 11/04/2024 Active cholecalciferol 0.025 mg oral capsule (8 sources) Vitamin D take 1 capsule by mouth once daily cholecalciferol (Vitamin D-3) 25 MCG (1000 UT) capsule Take 1 capsule by mouth 1 (one) time each day at the same time. Active fexofenadine hydrochloride 180 mg oral tablet (8 sources) Histamine-1 Receptor Antagonist take 1 tablet by mouth in the morning fexofenadine (Karla) 180 MG tablet Take 180 mg by mouth in the morning. Active FIBER, GUAR GUM, PO (8 sources) take 4 g by mouth once daily FIBER, GUAR GUM, PO Take 4 g by mouth Daily Active ibuprofen 200 mg oral tablet (8 sources) Nonsteroidal Anti-inflammatory Drug take 1 tablet by mouth every eight hours as needed for pain ibuprofen 200 MG tablet Take 200 mg by mouth every 8 (eight) hours if needed for moderate pain. Active Misc Natural Products (ELDERBERRY ZINC/VIT C/IMMUNE MT) (8 sources) take 1 tablet by mouth in the morning Misc Natural Products (ELDERBERRY ZINC/VIT C/IMMUNE MT) Use 1 tablet in the mouth or throat in the morning. Active montelukast 10 mg oral tablet (10 sources) Leukotriene Receptor Antagonist Start: 11-08-2023 End: 11-04-2024 take 1 tablet by mouth at bedtime montelukast (Singulair) 10 MG tablet Indications: Mild intermittent asthma without complication (HCC) Take 1 tablet (10 mg) by mouth at bedtime 90 tablet 1 05/08/2024 11/04/2024 Active Multiple Vitamin (multivitamin) capsule (8 sources) take 1 capsule by mouth in the morning Multiple Vitamin (multivitamin) capsule Take 1 capsule by mouth in the morning. Active Problems Active Problems Problem Classification Problem Date Documented Date Episodic/Chronic Asthma (12 sources) Mild intermittent asthma; Translations: [Mild intermittent asthma, uncomplicated] Onset: 09-28-2022 09-28-2022 Chronic Cardiac dysrhythmias (4 sources) Palpitations; Translations: [Palpitations] 08-30-2024 Episodic Diabetes mellitus without complication (2 sources) Hyperglycemia; Translations: [Impaired fasting glucose] 05-08-2024 Episodic Disorders of lipid metabolism (12 sources) Mixed hyperlipidemia; Translations: [Mixed hyperlipidemia] Onset: 09-28-2022 09-28-2022 Chronic Heart valve disorders (4 sources) Heart murmur; Translations: [Cardiac murmur, unspecified] 08-30-2024 Episodic Menopausal disorders (16 sources) Disorder associated with menstruation AND/OR menopause; Translations: [Menopausal and female climacteric states] Onset: 09-28-2022 09-28-2022 Chronic Other liver diseases (8 sources) Fatty (change of) liver, not elsewhere classified; Translations: [Other chronic nonalcoholic liver disease] Onset: 09-28-2022 09-28-2022 Chronic Other nutritional; endocrine; and metabolic disorders (10 sources) Cholesterol level - finding; Translations: [Lipoprotein deficiency] Onset: 09-28-2022 09-28-2022 Chronic Other nutritional; endocrine; and metabolic disorders (10 sources) Obesity caused by energy imbalance; Translations: [Morbid (severe) obesity due to excess calories] Onset: 09-28-2022 09-28-2022 Chronic Other nutritional; endocrine; and metabolic disorders (10 sources) Body mass index 40+ - severely obese; Translations: [Body mass index (BMI) 40.0-44.9, adult] Onset: 10-31-2023 10-31-2023 Chronic Other screening for suspected conditions (not mental disorders or infectious disease) (8 sources) Encounter for screening mammogram for malignant neoplasm of breast; Translations: [Patient encounter status] Onset: 11-10-2021 Episodic Other upper respiratory disease (10 sources) Allergic rhinitis; Translations: [Allergic rhinitis, unspecified] Onset: 09-28-2022 09-28-2022 Chronic Residual codes; unclassified (1 source) Family history of malignant neoplasm of trachea, bronchus and lung; Translations: [FAM HX MALIG NEOPLSM TRACH BRON LNG] Onset: 11-14-2021 Episodic Residual codes; unclassified (1 source) Family history of other malignant neoplasms of lymphoid, hematopoietic and related tissues; Translations: [FAM HX OTH MAL ZENA LYMPH HEMATPOETC] Onset: 11-14-2021 Episodic Residual codes; unclassified (2 sources) Active advance directive (copy within chart) ; Translations: [Other specified health status] 08-23-2024 Episodic Screening and history of mental health and substance abuse codes (2 sources) Patient encounter status; Translations: [Encounter for screening examination for other mental health and behavioral disorders] 08-23-2024 Episodic Past or Other Problems Problem Classification Problem Date Documented Da te Episodic/Chronic Acquired foot deformities (8 sources) Pronation deformity of the foot; Translations: [Other acquired deformities of right foot] Onset: 09-28-2022 09-28-2022 Episodic Allergic reactions (8 sources) Chronic eczema; Translations: [Dermatitis, unspecified] Onset: 09-28-2022 09-28-2022 Episodic Mood disorders (8 sources) Mood disorders Onset: 08-30-2023 Resolved: 08-30-2024 08-30-2023 Other ear and sense organ disorders (8 sources) Hearing loss of right ear; Translations: [Unspecified hearing loss, right ear] Onset: 09-28-2022 Resolved: 08-30-2023 08-30-2023 Chronic Other nutritional; endocrine; and metabolic disorders (8 sources) Lipoprotein deficiency disorder; Translations: [Lipoprotein deficiency] Onset: 06-11-2017 Resolved: 08-30-2023 08-30-2023 Chronic Results Test Name Value Interpretation Reference Range Facility CA ECHO DOPPLER COMPLETEon 0 10-31-2024 [place] [address] Cardiology Report Signed Patient: ALYSSA CARDOZA MR#: [id number] : 1960 Acct:[id number] Age/Sex: 64 / F ADM Date: 10/30/24 Loc: CARD Attending Dr: LUIS VILLA Ordering Physician: LUIS VILLA Date of Service: 10/30/24 Procedure(s): CA echo doppler complete Accession Number(s): [id number] cc: LUIS VILLA Patient Name: ALYSSA CARDOZA MR#: [id number] : 1960 Exam Date: 10/30/2024 Ordering Doctor: DR LUIS VILLA . ECHOCARDIOGRAM REPORT PROCEDURE: CA ECHO DOPPLER COMPLETE INDICATIONS: Heart murmur, palpitations COMPARISON: None. DESCRIPTION: COMPLETE ECHOCARDIOGRAM Real-time transthoracic echocardiography with 2D, M-mode, spectral and color flow Doppler performed. QUALITY: Technical quality was good. LEFT VENTRICLE: Normal chamber size. Normal left ventricular wall thickness. LV EF: Global left ventricular systolic function is hyperdynamic; visually estimated ejection fraction is 65-70%. No significant wall motion abnormalities. DIASTOLIC: Normal diastolic function. ATRIAL SEPTUM: Visually appears intact. LEFT ATRIUM: Normal chamber size. RIGHT ATRIUM: Normal chamber size. RIGHT VENTRICLE: Normal chamber size. Normal right ventricular systolic function. TRICUSPID VALVE: Normal mobility and thickness. No stenosis with trivial regurgitation. Doppler studies reveal mildly (35-45) elevated right-sided pressures. RVSP 36 mmHg MITRAL VALVE: Normal mobility and thickness. No evidence of mitral valve stenosis. There is no mitral annular calcification. Trivial mitral regurgitation. AORTIC VALVE: Normal trileaflet appearance. No visible sclerosis. Normal leaflet mobility. No evidence of aortic valve stenosis. No aortic regurgitation. AORTIC ROOT: Normal diameter and appearance. Ascending aorta is normal in size. PULMONIC VALVE: Normal thickness and mobility. No stenosis. No regurgitation. PERICARDIUM: Anterior free space; trivial effusion versus fat pad. IVC: Collapses with inspiration. IVC is normal in size. CONCLUSION: 1. Global left ventricular systolic function is hyperdynamic; visually estimated ejection fraction is 65 to 70% 2. Normal right ventricular size and systolic function 3. Normal diastolic function 4. The left atrium is normal in size 5. No significant valvular abnormalities 6. Anterior free space; trivial effusion versus fat pad Adult Echocardiography Procedure Report Left Ventricle LVEDD (3.7 - 5.6 cm): 4.65 cm LVESD (2.2 - 4.0 cm): 2.75 cm LVIVS thickness (0.6 - 1.2 cm): 0.98 cm LVPW thickness (0.5 - 1.0 cm): 0.93 cm e': 0.11 m/s E - e': 6.59 LVOT Max Gradient: 6.87 mm[Hg] LVOT Area (cm2): 1.31 m/s Peak Velocity (LVOT): 1.31 m/s Mean Velocity (LVOT): 0.85 m/s LVOT Diameter 2.03 cm Left Ventricular Ejection Fraction: 73.39 % Left Atrium LA Volume Index (2D A2C): 26.89 ml/m2 Left Atrium Systolic Dimension: 4.24 cm Mitral Valve MV E to A Ratio: 0.93 Mitral Valve A-Wave Peak Velocity: 0.80 m/s Mitral Valve E-Wave Peak Velocity: 0.74 m/s Right Ventricle Aorta AO Root Diam: 3.37 cm Ascending Ao Diam: 2.95 cm Aortic Valve AoV Area (Peak Cristian): 2.29 cm2, 2.29 cm2 AoV Area (VTI): 2.46 cm2, 2.46 cm2 Peak Velocity(Antegrade Flow): 1.86 m/s Peak Gradient(Antegrade Flow): 13.83 mm[Hg] Mean Velocity(Antegrade Flow): 1.26 m/s Mean Gradient(Antegrade Flow): 7.34 mm[Hg] Velocity Time Integral: 40.40 cm Tricuspid Valve Peak Velocity (Regurgitant Flow): 2.87 m/s Pulmonic Valve Peak Velocity: 1.19 m/s Peak Gradient: 5.70 mm[Hg] Right Atrium Right Atrium Systolic Pressure: 30.92 ml, 30.92 ml Dictated by: Zak Rodrigues M.D. on 10/31/2024 at 17:44 Approved by: Zak Rodrigues M.D. on 10/31/2024 at 17:48 Dictated By: Derian Rodrigues (more content not included)... [facility] Radiology, Radiologist, MD - 10/31/2024 [place] [address] Cardiology Report Signed Patient: ALYSSA CARDOZA MR#: [id number] : 1960 Acct:[id number] Age/Sex: 64 / F ADM Date: 10/30/24 Loc: CARD Attending Dr: LUIS VILLA Ordering Physician: LUIS VILLA Date of Service: 10/30/24 Procedure(s): CA echo doppler complete Accession Number(s): [id number] cc: LUIS VILLA Patient Name: ALYSSA CARDOZA MR#: [id number] : 1960 Exam Date: 10/30/2024 Ordering Doctor: DR LUIS VILLA . ECHOCARDIOGRAM REPORT PROCEDURE: CA ECHO DOPPLER COMPLETE INDICATIONS: Heart murmur, palpitations COMPARISON: None. DESCRIPTION: COMPLETE ECHOCARDIOGRAM Real-time transthoracic echocardiography with 2D, M-mode, spectral and color flow Doppler performed. QUALITY: Technical quality was good. LEFT VENTRICLE: Normal chamber size. Normal left ventricular wall thickness. LV EF: Global left ventricular systolic function is hyperdynamic; visually estimated ejection fraction is 65-70%. No significant wall motion abnormalities. DIASTOLIC: Normal diastolic function. ATRIAL SEPTUM: Visually appears intact. LEFT ATRIUM: Normal chamber size. RIGHT ATRIUM: Normal chamber size. RIGHT VENTRICLE: Normal chamber size. Normal right ventricular systolic function. TRICUSPID VALVE: Normal mobility and thickness. No stenosis with trivial regurgitation. Doppler studies reveal mildly (35-45) elevated right-sided pressures. RVSP 36 mmHg MITRAL VALVE: Normal mobility and thickness. No evidence of mitral valve stenosis. There is no mitral annular calcification. Trivial mitral regurgitation. AORTIC VALVE: Normal trileaflet appearance. No visible sclerosis. Normal leaflet mobility. No evidence of aortic valve stenosis. No aortic regurgitation. AORTIC ROOT: Normal diameter and appearance. Ascending aorta is normal in size. PULMONIC VALVE: Normal thickness and mobility. No stenosis. No regurgitation. PERICARDIUM: Anterior free space; trivial effusion versus fat pad. IVC: Collapses with inspiration. IVC is normal in size. CONCLUSION: 1. Global left ventricular systolic function is hyperdynamic; visually estimated ejection fraction is 65 to 70% 2. Normal right ventricular size and systolic function 3. Normal diastolic function 4. The left atrium is normal in size 5. No significant valvular abnormalities 6. Anterior free space; trivial effusion versus fat pad Adult Echocardiography Procedure Report Left Ventricle LVEDD (3.7 - 5.6 cm): 4.65 cm LVESD (2.2 - 4.0 cm): 2.75 cm LVIVS thickness (0.6 - 1.2 cm): 0.98 cm LVPW thickness (0.5 - 1.0 cm): 0.93 cm e': 0.11 m/s E - e': 6.59 LVOT Max Gradient: 6.87 mm[Hg] LVOT Area (cm2): 1.31 m/s Peak Velocity (LVOT): 1.31 m/s Mean Velocity (LVOT): 0.85 m/s LVOT Diameter 2.03 cm Left Ventricular Ejection Fraction: 73.39 % Left Atrium LA Volume Index (2D A2C): 26.89 ml/m2 Left Atrium Systolic Dimension: 4.24 cm Mitral Valve MV E to A Ratio: 0.93 Mitral Valve A-Wave Peak Velocity: 0.80 m/s Mitral Valve E-Wave Peak Velocity: 0.74 m/s Right Ventricle Aorta AO Root Diam: 3.37 cm Ascending Ao Diam: 2.95 cm Aortic Valve AoV Area (Peak Cristian): 2.29 cm2, 2.29 cm2 AoV Area (VTI): 2.46 cm2, 2.46 cm2 Peak Velocity(Antegrade Flow): 1.86 m/s Peak Gradient(Antegrade Flow): 13.83 mm[Hg] Mean Velocity(Antegrade Flow): 1.26 m/s Mean Gradient(Antegrade Flow): 7.34 mm[Hg] Velocity Time Integral: 40.40 cm Tricuspid Valve Peak Velocity (Regurgitant Flow): 2.87 m/s Pulmonic Valve Peak Velocity: 1.19 m/s Peak Gradient: 5.70 mm[Hg] Right Atrium Right Atrium Systolic Pressure: 30.92 ml, 30.92 ml Dictated by: Zak Rodrigues M.D. on 10/31/2024 at 17:44 Approved by: Zak Rodrigues M.D. on 10/31/2024 at 17:48 Dictated By: Zak Rodrigues M.D. 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 Admission #: [id number] Family : Order #: [id number] CLICK HERE TO VIEW EXAM RADIOLOGY REPORT [...] lung cancer at age 58. LOCATION: [facility] BREAST COMPOSITION: Scattered areas fibroglandular density. FINDINGS: [...] M.D. on 11/11/2021 at 12:39 Normal [facility] Vital Signs Date Time Vital Sign Value Performing Clinician Pamelai wendy 08-30-2024 10:01-0400 Body height 161.3 cm Luis Villa MD Work Phone: [facility] 08-30-2024 10:01-0400 Body mass index (BMI) [Ratio] 40.89 kg/m2 Luis Villa MD Work Phone: [facility] 08-30-2024 10:01-0400 Body weight 106.37 kg Luis Villa MD Work Phone: [facility] 08-30-2024 10:01-0400 Diastolic blood pressure 70 mm[Hg] Luis Villa MD Work Phone: [facility] 08-30-2024 10:01-0400 Heart rate 72 /min Luis Villa MD Work Phone: [facility] 08-30-2024 10:01-0400 SaO2% (BldA) [Mass fraction] 96 % Luis Villa MD Work Phone: [facility] 08-30-2024 10:01-0400 Systolic blood pressure 120 mm[Hg] Luis Villa MD Work Phone: [facility] 05-08-2024 13:57-0500 Body height 161.3 cm Luis Villa MD Work Phone: [facility] 05-08-2024 13:57-0500 Heart rate 84 /min Luis Villa MD Work Phone: [facility] 05-08-2024 13:57-0500 SaO2% (BldA) [Mass fraction] 97 % Luis Villa MD Work Phone: [facility] Healthcare Encounters Encounter Date Encounter Type Care Provider Facility Start: 11-01-2024 End: 11-01-2024 Follow-up encounter Luis Villa MD Work Phone: [facility] Start: 10-31-2024 End: 10-31-2024 [facility] Result Encounter Luis Villa MD Work Phone: [facility] Unsolicited Start: 10-31-2024 End: 10-31-2024 [facility] Result Encounter Luis Villa MD Work Phone: [facility] Unsolicited Start: 08-30-2024 End: 08-30-2024 Bamboo flowsheet Luis Villa MD Work Phone: [facility] Start: 08-30-2024 End: 08-30-2024 Bamboo flowsheet Luis Villa MD Work Phone: [facility] Start: 08-30-2024 End: 08-30-2024 Patient encounter procedure Luis Villa MD Work Phone: [facility] Comment on above: Encounter for Medica re annual wellness exam (Primary Dx); Advance directive in chart; Encounter for screening for other disorder; Screening for alcohol problem; Screening mammogram, encounter for; Morbid (severe) obesity due to excess calories (CMS/HCC); Heart murmur; Palpitations; Mild intermittent asthma without complication (CMS/HCC); Body mass index (BMI) 40.0-44.9, adult (CMS/HCC); Mixed hyperlipidemia (CMS/HCC); Low HDL (under 40) ([facility]/HCC) Start: 08-30-2024 End: 08-30-2024 ambulatory LUIS VILLA Not Available Start: 05-08-2024 End: 05-08-2024 Bamboo flowsheet Luis Villa MD Work Phone: [facility] Start: 05-08-2024 End: 05-08-2024 Bamboo Zura!heet Luis Villa MD Work Phone: [facility] Start: 05-08-2024 End: 05-08-2024 Office outpatient visit 25 minutes Luis Villa MD Work Phone: [facility] Comment on above: Non-seasonal allergi c rhinitis, unspecified trigger (Primary Dx); Mild intermittent asthma without complication (CMS/HCC); Mixed hyperlipidemia ([facility]/HCC); Elevated fasting blood sugar Start: 05-08-2024 End: 05-08-2024 ambulatory LUIS VILLA Not Available Start: 11-08-2023 End: 11-08-2023 ambulatory LUIS VILLA Not Available Start: 11-10-2021 End: 11-11-[address] LUIS VILLA Facility: Procedures Date Procedure Procedure Detail Performing Clinician Start: 10-31-2024 CA ECHO DOPPLER COMPLETE Luis Villa MD Work Phone: Start: 11-24-2023 Mammography Luis joy MD Work Phone: Start: 01-04-2022 Colonoscopy Luis joy MD Work Phone: Plan of Treatment Date Care Activity Detail Author Start: 01-05-2032 Screening for malign ant neoplasm of colon [facility] Start: 08-30-2025 Medicare Annual Well ness (AWV) Medicare Annual Wellness (AWV) [facility] Start: 08-23-2025 Pneumococcal Vaccine : 65+ Years (1 of 2 - PCV) Pneumococcal Vaccine: 65+ Years (1 of 2 - PCV) [facility] Comment on above: Postponed from 08/16 (Patient Refused) Start: 02-01-2025 Screening for malign ant neoplasm of colon FIT [facility] Start: 12-17-2024 Influenza vaccination N [facility] Start: 11-23-2024 Screening for malign ant neoplasm of breast Mammogram [facility] Start: 10-06-2024 End: 05-08-2025 Comprehensive metabolic 2000 panel - Serum or Plasma Comprehensive metabolic panel Lab Routine Elevated fasting blood sugar Expected: 10/06/2024 (Approximate), Expires: 05/08/2025 [facility] Comment on above: Expected: 10/06/2024 (Approximate), Expires: 05/08/2025 Start: 10-06-2024 End: 05-08-2025 Hemoglobin A1c/Hemoglobin.total in Blood Hemoglobin A1c Lab Routine Elevated fasting blood sugar Expected: 10/06/2024 (Approximate), Expires: 05/08/2025 [facility] Work Phone: Comment on above: Expected: 10/06/2024 (Approximate), Expires: 05/08/2025 Start: 10-06-2024 End: 05-08-2025 Lipid 1996 panel - Serum or Plasma Lipid panel Lab Routine Mixed hyperlipidemia (CMS/HCC) Expected: 10/06/2024 (Approximate), Expires: 05/08/2025 [facility] Comment on above: Expected: 10/06/2024 (Approximate), Expires: 05/08/2025 Start: 08-30-2024 End: 08-30-2026 Echocardiogram 2D complete Echocardiogram 2D complete Echocardiography Routine Heart murmur Palpitations Expected: 08/30/2024 (Approximate), Expires: 08/30/2026 [facility] Work Phone: Comment on above: Expected: 08/30/2024 (Approximate), Expires: 08/30/2026 Start: 08-30-2024 End: 08-30-2024 Patient encounter procedure 08/30/2024 10:00 AM EDT Office Visit [facility] [address] [place] [address] Luis Villa MD [address] [place] [address] (Fax) Encounter for Medicare annual wellness exam; Advance directive in chart; Encounter for screening for other disorder; Screening for alcohol problem; Screening mammogram, encounter for; Morbid (severe) obesity due to excess calories (CMS/HCC) [facility] Comment on above: Encounter for Medica annual wellness exam; Advance directive in chart; Encounter for screening for other disorder; Screening for alcohol problem; Screening mammogram, encounter for; Morbid (severe) obesity due to excess calories (CMS/HCC) Start: 08-29-2024 Medicare Annual Well ness (AWV) Medicare Annual Wellness (AWV) [facility] Start: 05-08-2024 End: 05-08-2024 Patient encounter procedure 05/08/2024 2:00 PM EST Office Visit [facility] [address] [place] [address] Luis Villa MD [address] [place] [address] (Fax) Arrived [facility] Comment on above: Arrived Start: 12-18-2023 Influenza vaccination Influenza Vacc ine (#1) [facility] Start: 1988 Screening for malign ant neoplasm of cervix HPV/Cotest [facility] Start: 08-17-1979 Screening for malign ant neoplasm of cervix Pap Smear [facility] Start: 1964 Pneumococcal Vaccine : 65+ Years (1 of 2 - PCV) Pneumococcal Vaccine: 65+ Years (1 of 2 - PCV) [facility] Start: 1960 Screening for malign ant neoplasm of colon [facility] Immunizations Immunization Date Immunization Notes Care Provider Fa cili 04-04-2021 zoster vaccine recombinant Luis Villa MD Work Phone: [facility] 02-03-2021 zoster vaccine recombinant Luis Villa MD Work Phone: [facility] 01-20-2021 influenza, seasonal, injectable Luis Villa MD Work Phone: [facility] 01-20-2021 influenza virus vacc ine, unspecified formulation Luis Villa MD Work Phone: [facility] 01-11-2020 influenza, injectabl e, quadrivalent, preservative free Luis Villa MD Work Phone: [facility] 02-12-2019 influenza, injectabl e, quadrivalent, preservative free Luis Villa MD Work Phone: [facility] 02-05-2018 influenza, injectabl e, quadrivalent, preservative free Luis Villa MD Work Phone: [facility] 02-07-2017 influenza, high dose seasonal, preservative-free Luis Villa MD Work Phone: [facility] 12-30-2014 influenza, injectabl e, quadrivalent, preservative free Luis Villa MD Work Phone: [facility] Payers Date Payer Category Payer Worker's Compensation [employer] [id number] 2023 Medicare [id number] 1960 Unknown [id number] 1960 Unknown [id number] 1960 Unknown [id number] 1960 Unknown [id number] Unknown [id number] Social History Date Type Detail Facility [facility]: [facility] Start: 09-28-2022 Tobacco use and exposure Smoke less tobacco non-user [facility] Start: 11-08-2023 End: 08-30-2024 Alcoholic beverage intake Lifetime non-drinker (finding) [facility] Start: 11-08-2023 End: 08-30-2024 History of Social function [facility] [facility] Start: 11-08-2023 End: 08-30-2024 Tobacco use panel [facility] Start: 09-29-2022 Education 21 [facility] Start: 09-29-2022 Alcohol Comment Caffeine intak e: 3-4 cups per day of coffee and soda [facility] Start: 1960 Sex assigned at Not on file [facility] Functional Status Date Assessment Result Facility 08-30-2024 Patient Health [facility] ionnaire 2 item (PHQ-2) [Reported] [facility] History of Present illness Narrative 08-30-2024 Luis Villa MD - 08/30/2024 10:00 AM EDT Note Date & Type Note Facility 08-30-2024 History of Presen t illness Narrative Images from the original note were not included. Alyssa Cardoza is a 64 y.o. female presents with chief complaint of Annual Exam HPI: History of Present Illness I have reviewed and reconciled the history and medication list with the patient today. CURRENT PCP/CARE TEAM: Patient Care Team: Luis Villa MD as PCP - General (Family Medicine) Over the past 2 weeks, how often have you been bothered by any of the following problems? Little interest or pleasure in doing things: Not at all Feeling down, depressed, or hopeless: Several days Patient Health Questionnaire-2 Score: 1 Over the past 2 weeks, how often have you been bothered by any of the following problems? Trouble falling or staying asleep, or sleeping too much: Not at all Feeling tired or having little energy: Not at all Poor appetite or overeating: Not at all Feeling bad about yourself - or that you are a failure or have let yourself or your family down: Several days Trouble concentrating on things, such as reading the newspaper or watching television: More than half the days Moving or speaking so slowly that other people could have noticed? Or the opposite - being so fidgety or restless that you have been moving around a lot more than usual.: Not at all Thoughts that you would be better off or hurting yourself in some way: Not at all Patient Health Questionnaire-9 Score: 4 Health Risk Assessment Form Do you need help eating, bathing, using the toilet, dressing, or getting around your home?: No Can you prepare your own meals?: Yes Can you do your own housework without help?: Yes Can you shop for groceries or clothes without help?: Yes Do you exercise for about 20 minutes 3 or more days a week?: Yes How confident are you that you can control and manage most of your health problems?: Very confident Can you mange your money, credit cards and accounts, pay bills and taxes?: Yes Vision Screening: Yes, 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 Hearing Screening: Not done Cognitive Screening Self Assessment: No concerns rasied by family members, friends, or caretakers Three Word Registration: Banana, Pratt, Chair Clock Drawing: Normal Clock - 2 Three Word Recall: All 3 words correct - 3 Total Score (0-5 Points): 5 Pain Assessment Pain Score: 2 HISTORIES: PAST MEDICAL HISTORY: Past Medical History: Diagnosis Date Abnormal mammogram Abnormal mammogram Allergic rhinitis unspecified Appendicitis Arthritis Asthma Body mass index (BMI) of 37.0-37.9 in adult Breast lump Bronchitis Chicken pox COVID-19 2020 Diabetes (CMS/HCC) Family history of cancer Hx of migraine headaches Hypertension (CMS/HCC) Kidney disease Liver disease Measles Mixed hyperlipidemia (CMS/HCC) Mumps Obesity Pneumonia Postmenopausal atrophic vaginitis Steatohepatitis, nonalcoholic Tonsillitis Vaginal infection SURGICAL HISTORY: Past Surgical History: Procedure Laterality Date BREAST BIOPSY calcium iodine deficiency CARPAL TUNNEL RELEASE Right 06/23/2020 [place] Froilan Garcia COLONOSCOPY 2009 DILATION AND CURETTAGE SOCIAL HISTORY: Social History Tobacco Use Smoking status: Never Smokeless tobacco: Never Vaping Use Vaping status: Never Used Substance Use Topics Alcohol use: Never Comment: Caffeine intake: 3-4 cups per day of coffee and soda Drug use: Never Depression: Not at risk (08/30/2024) PHQ-2 PHQ-2 Score: 1 FAMILY HISTORY: Family History Problem Relation Name Age of Onset Lymphoma Mother Other (CABG) Mother Heart disease Mother Cancer Mother Kidney disease Father Liver disease Father Heart disease Brother Coronary artery disease Brother Other (CABG) Brother leaky valve Other (Michel Mathews) Brother Other cancer Brother cancerous tumor removed from appendix Hyperlipidemia Son Colon cancer Paternal Great-Grandmother Drug abuse Other Opiate addict - clean and sober Breast cancer Neg Hx Ovarian cancer Neg Hx MEDICATIONS: Current Outpatient Medications Medication Instructions albuterol HFA 90 mcg/act inhaler 1 puff, Inhalation, 4 times daily atorvastatin (LIPITOR) 80 mg, Oral, Nightly azelastine (Astelin) 0.1 % nasal spray 2 sprays, Each Nostril, 2 times daily cholecalciferol (Vitamin D-3) 25 MCG (1000 UT) capsule 1 capsule, Every 24 hours fexofenadine (KARLA) 180 mg, Daily FIBER, GUAR GUM, PO 4 g, Daily ibuprofen 200 mg, Every 8 hours PRN Misc Natural Products (ELDERBERRY ZINC/VIT C/IMMUNE MT) 1 tablet, Daily montelukast (SINGULAIR) 10 mg, Oral, Nightly Multiple Vitamin (multivitamin) capsule 1 capsule, Daily ALLERGIES: Allergies Allergen Reactions Cephalexin Rash Glycerin Other Reaction(s): Unknown PHYSICAL EXAM: Visit Vitals BP 120/70 Pulse 72 Ht 5' 3.5 Wt 234 lb 8 oz SpO2 96% BMI 40.89 kg/m OB Status Postmenopausal Smoking Status Never BSA 2.18 m BP Readings from Last 3 Encounters: 08/30/24 120/70 08/30/23 126/72 05/16/23 128/78 Wt Readings from Last 3 Encounters: 08/30/24 234 lb 8 oz 11/08/23 236 lb 08/30/23 236 lb 8 oz Physical Exam The patient is pleasant and in no acute distress. The head is normocephalic and atraumatic. Both eyes appear grossly normal without obvious lid pathology or icterus. Both ears hearing is grossly intact. The neck is supple and trachea is midline. No masses are appreciated. The anterior cervical lymphatics demonstrates shoddy bilateral nontender lymphadenopathy. There is no supraclavicular lymphadenopathy. The heart is regular rate and rhythm without S3, S4. Harsh sounding / 3/6 systolic murmur left of the sternum. The patient has normal respiratory pattern. The breath sounds are symmetrical without evidence of rhonchi or rales. No wheezing. The skin is warm and dry. The lower extremities have trace edema. Neurologic screening exam is nonfocal. The patient is alert. There is no overt gross evidence of cognitive impairment The patient has good eye contact and speech is clear. Appropriate affect. Results ASSESSMENT AND PLAN: Assessment/Plan 1. Encounter for Medicare annual wellness exam (Primary) The patient is here for their Annual Medicare Wellness visit. Demographics were updated. Self-assessment was completed and reviewed. Past medical, family, and social history were updated. The medication list updated and reviewed by the doctor. A list of other current medical providers is established and updated. Time was spent discussing health maintenance issues, ordering testing as appropriate, and a schedule was reviewed regarding recommended screening. We discussed safety issues and fall risk. Depression screening was completed and addressed as appropriate. Fall screening was completed and addressed. Cognitive function was assessed by direct observation, cognitive screening as indicated, and assessment of ability to perform ADL's. The BMI and discussed. Major risk factors for chronic disease including family history were discussed. An after visit summary is made available to the patient 2. Advance directive in chart No changes to advanced directives 3. Encounter for screening for other disorder Clinically insignificant depression screening 4. Screening for alcohol problem Negative alcohol screening 5. Screening mammogram, encounter for Not due until November and the patient will contact us back. 6. Morbid (severe) obesity due to excess calories (CMS/HCC) Chronic problem and just a brief reminder concerning diet and exercise. 7. Heart murmur She has had a heart murmur before but it has been rather faint and soft this is a distinct change after reviewing my previous notes. Along with the palpitations noted below she needs further diagnostic evaluation with echocardiography. - Echocardiogram 2D complete; Future - Echocardiogram 2D complete 8. Palpitations This is a new symptom for her over the last couple of months. She notes a fluttering that is a little bit uncomfortable but lasts less than a minute and happens intermittently. No diaphoresis or loss of consciousness. Along with a heart murmur change in the new symptoms, patient needs further diagnostic evaluation with echocardiography. She may ultimately need Holter monitoring. - Echocardiogram 2D complete; Future - Echocardiogram 2D complete 9. Mild intermittent asthma without complication (CMS/HCC) Chronic problem, stable, monitor longitudinally. 10. Body mass index (BMI) 40.0-44.9, adult (CMS/HCC) Defines the obesity 11. Mixed hyperlipidemia (CMS/HCC) Chronic problem, monitor longitudinally. 12. Low HDL (under 40) (CMS/HCC) Chronic problem, monitor longitudinally. documented in this encounter [facility] History of Present illness Narrative 05-08-2024 Luis Villa MD - 05/08/2024 2:00 PM EST Note Date & Type Note Facility 05-08-2024 History of Presen t illness Narrative Images from the original note were not included. Patient ID: Alyssa Cardoza is a 63 y.o. female who presents for: Asthma Patient presents for evaluation of Asthma. The patient has been previously diagnosed with asthma. Symptoms currently include none and occur infrequently . Observed precipitants include: animal dander, pollens, and upper respiratory infection. She very specifically notes that she has been doing better since her cat lives in the heated garage. Does not think she has use the albuterol in almost 4 if not 5 months. Does he do nebulizer treatments? no Does he use an inhaler? yes Does he use a spacer with MDIs? no Does he monitor peak flow rates? no Hyperlipidemia Pt who presents for follow-up of dyslipidemia. A repeat fasting lipid profile was not done. The patient does not use medications that may worsen dyslipidemias (corticosteroids, progestins, anabolic steroids, diuretics, beta-blockers, amiodarone, cyclosporine, olanzapine). Exercise: intermittently. Pharmacy has been incorrectly filling her 80mg medication as 40 mg instead. Review of Systems Constitutional: Negative for activity change and fatigue. Respiratory: Negative for cough, shortness of breath and wheezing. Cardiovascular: Negative for chest pain, palpitations and leg swelling. Neurological: Negative for light-headedness and headaches. Objective The patient is pleasant and in no acute distress. The neck is supple and trachea is midline. No masses are appreciated. The heart is regular rate and rhythm without S3, S4. No murmur. The patient has normal respiratory pattern. The breath sounds are Course but symmetrical without evidence of rhonchi or rales. No wheezing. The skin is warm and dry. The patient has good eye contact and speech is clear. Appropriate affect. Visit Vitals Pulse 84 Ht 5' 3.5 SpO2 97% BMI 41.15 kg/m OB Status Postmenopausal Smoking Status Never BSA 2.19 m Allergies Allergen Reactions Cephalexin Rash Glycerin Other Reaction(s): Unknown Current Outpatient Medications on File Prior to Visit Medication Sig Dispense Refill albuterol HFA 90 mcg/act inhaler Inhale 1 puff in the morning and 1 puff at noon and 1 puff in the evening and 1 puff before bedtime. 18 g 5 atorvastatin (Lipitor) 40 MG tablet Take 40 mg by mouth in the morning. azelastine (Astelin) 0.1 % nasal spray Administer 2 sprays into each nostril in the morning and 2 sprays before bedtime. 90 mL 1 cholecalciferol (Vitamin D-3) 25 MCG (1000 UT) capsule Take 1 capsule by mouth 1 (one) time each day at the same time. fexofenadine (Karla) 180 MG tablet Take 180 mg by mouth in the morning. FIBER, GUAR GUM, PO Take 4 g by mouth Daily ibuprofen 200 MG tablet Take 200 mg by mouth every 8 (eight) hours if needed for moderate pain. montelukast (Singulair) 10 MG tablet Take 1 tablet (10 mg) by mouth at bedtime 90 tablet 1 Multiple Vitamin (multivitamin) capsule Take 1 capsule by mouth in the morning. atorvastatin (Lipitor) 80 MG tablet Take 1 tablet (80 mg) by mouth at bedtime (Patient not taking: Reported on 05/08/2024) 90 tablet 0 Misc Natural Products (ELDERBERRY ZINC/VIT C/IMMUNE MT) Use 1 tablet in the mouth or throat in the morning. (Patient not taking: Reported on 05/08/2024) No current facility-administered medications on file prior to visit. 1. Mild intermittent asthma without complication (CMS/HCC) She is doing quite well with this. She is pleased with how she is doing. She does note that she has least 2 albuterol HFAs and 1 of them is in her purse. - montelukast (Singulair) 10 MG tablet; Take 1 tablet (10 mg) by mouth at bedtime Dispense: 90 tablet; Refill: 1 2. Mixed hyperlipidemia (CMS/HCC) Chronic problem. There is a discrepancy between her last prescription And what we have prescribed. We went ahead and entered what she was currently taking and then discontinued it. I then refilled the correct dosing. - atorvastatin (Lipitor) 80 MG tablet; Take 1 tablet (80 mg) by mouth at bedtime Dispense: 90 tablet; Refill: 1 - Lipid panel; Future - Lipid panel 3. Non-seasonal allergic rhinitis, unspecified trigger (Primary) Chronic problem, stable, she is worse in the spring but has not intermittently it other times. In prescribing a renewal to their current medication, consideration of the following encompasses moderate decision making; the current prescriptions and supplements, the current allergies and medication intolerances, current medical conditions, and potential drug interactions. Any changes to risks, benefits, and reason for renewing their current medication due to the above were discussed. The patient was given a chance to ask questions today and all questions were answered. The patient is to contact us if any other questions arise or if any problems occur. (Utilizing the original guidelines or the 2020 office/outpatient code guidelines for selecting the level of E/M service, In both sets of guidelines, prescription drug management appears in the moderate medical decision making (MDM) row. Neither the original guidelines nor the new guidelines state that a new prescription or change is needed in order to credit prescription drug management) - azelastine (Astelin) 0.1 % nasal spray; Administer 2 sprays into each nostril in the morning and 2 sprays before bedtime. Dispense: 90 mL; Refill: 1 4. Elevated fasting blood sugar - Hemoglobin A1c; Future - Comprehensive metabolic panel; Future - Hemoglobin A1c - Comprehensive metabolic panel documented in this encounter [facility] Evaluation note Note Date & Type Note Facility Evaluation note Diagnosis Non-seasonal allergic rhinitis, unspecified trigger- Primary Mild intermittent asthma without complication (CMS/HCC) Mixed hyperlipidemia (CMS/HCC) Mixed hyperlipidemia Elevated fasting blood sugar Impaired fasting glucose documented in this encounter [facility] Evaluation note Note Date & Type Note Facility Evaluation note Diagnosis Encounter for Medicare annual wellness exam- Primary Advance directive in chart Encounter for screening for other disorder Screening for alcohol problem Screening for alcoholism Screening mammogram, encounter for Morbid (severe) obesity due to excess calories (CMS/HCC) Heart murmur Undiagnosed cardiac murmurs Palpitations Mild intermittent asthma without complication (CMS/HCC) Body mass index (BMI) 40.0-44.9, adult (CMS/HCC) Mixed hyperlipidemia (CMS/HCC) Mixed hyperlipidemia Low HDL (under 40) (CMS/HCC) documented in this encounter [facility] Summary Purpose Family History No Family History Records FoundNo Family History Records Found Advance Directives Documents on File Type Date Recorded Patient Postmaster Relief Expl anation Power of Benefits Processor 05/16/2023 9:27 AM 03-31 Power Of Benefits Processor Advance Directives and Living Will 05/16/2023 9:26 AM 2009-09-17 Living Wi ll Documents on File Type Date Recorded Patient Postmaster Relief Expl anation Power of Benefits Processor 05/16/2023 9:27 AM 03-31 Power Of Benefits Processor Advance Directives and Living Will 05/16/2023 9:26 AM 2009-09-17 Living Wi ll Additional Source Comments INFORMATION SOURCE (unrecogn ized section and content) DATE CREATED AUTHOR 11/17/2021 [facility] DATE CREATED AUTHOR AUTHOR'S ORGANIZ ATION 08/31/2024 [facility] [employer] Care Teams (unrecognized sec tion and content) Director Product Development Relationship Specialty Start Date End Date Luis Villa MD (Fax) PCP - General Family Medicine 09/22/22 Director Product Development Relationship Specialty Start Date End Date Luis Villa MD (Fax) PCP - General Family Medicine 09/22/22 Director Product Development Relationship Specialty Start Date End Date Luis Villa MD (Fax) PCP - General Family Medicine 09/22/22 Director Product Development Relationship Specialty Start Date End Date Luis Villa MD PCP - General Family Medicine 09/22/22 Director Product Development Relationship Specialty Start Date End Date Luis Villa MD PCP - General Family Medicine 09/22/22 Reason for Visit (unrecogniz ed section and content) Reason Comments Asthma Reason Comments Annual Exam FOR RECORDS PERTAINING TO PATIENTS WHO ARE [...] BE BASED ON THE PRIMARY CLINICAL RECORDS. [facility] [employer] provides no warranty or guarantee of the accuracy or completeness of information in this document.
[2024-11-28 09:32] LABS: Alanine Aminotransferase 43 U/L (14-59); Albumin Globulin Ratio 1.2; Albumin Level 3.6 g/dL (3.4-5.0); Alkaline Phosphatase 103 U/L (46-116); Anion Gap 12.0; Aspartate Amino Transferase 20 U/L (15-37); Blood Urea Nitrogen 11.0 mg/dL (7.0-18.0); Calcium 8.8 mg/dL (8.5-10.1); Carbon Dioxide 27.2 mmol/L (21.0-32.0); Chloride 106 mmol/L (98-107); Cholesterol 138 mg/dL (<=200); Estimated GFR (African America >60 (>=60 mL/min/1.73m^2); Estimated GFR (Non-African Ame >60 (>=60 mL/min/1.73m^2); Globulin 3.0 g/dL; Glucose 111 mg/dL (74-106); HDL Cholesterol 34 mg/dL (40-60); Potassium 4.2 mmol/L (3.5-5.1); Sodium 141 mmol/L (136-145); Total Protein 6.6 g/dL (6.4-8.2); Triglycerides 126 mg/dL (<=150); VLDL CHOLESTEROL 25.2 mg/dL
== END 2024-11-28 08:40 | disposition home or self-care (01) ==
LOC: LAB 08:40
PROVIDERS: PCP Family Medicine; Visit Provider Family Medicine
DX: R73.01 Impaired fasting glucose (principal); E78.2 Mixed hyperlipidemia
CPT/HCPCS: 36415; 80053; 80061; 83036

== ENCOUNTER 2025-01-11 09:05 | Outpatient (OUT) | payer MEDICARE, SELFPAY ==
--- OUTSIDE RECORDS SUMMARY | 2025-01-11 09:07 | XMS_ITS | CCD ---
Author Organization [facility] Care Team Providers Care Pump Servicer Name Role Phone DAISY, DR LÓPEZ Referring Unavailable DAISY, DR LÓPEZ Attending Unavailable DAISY, DR LÓPEZ Consulting Unavailable DR LUIS VILLA Primary Care Unavailable DAISY, DR LÓPEZ Admitting Unavailable CONRAD, DR RAFFY Jack Consulting Unavailable Luis Villa MD Primary Care Provider Luis Villa MD Primary Care Provider [phone] LUIS VILLA Attending Unavailable LUIS VILLA Attending Unavailable LUIS VILLA Attending Unavailable Allergies Allergy Classification Reported Allergen(s) Allergy Type Date of Onset Reaction(s) Facility (13 sources) Cephalexin Drug Allergy 09-28-2022 Rash [facility] Healthcare (13 sources) Glycerin Drug Allergy 09-28-2022 [facility] Medications Current Medications Medication Drug Class(es) Dates Sig (Normalized) Sig (Original) [id number] 200 actuat albuterol 0.09 mg/actuat metered dose inhaler (13 sources) beta2-Adrenergic Agonist Start: 10-25-2022 albuterol HFA 90 mcg/act inhaler Indications: Asthma Inhale 1 puff in the morning and 1 puff at noon and 1 puff in the evening and 1 puff before bedtime. 18 g 5 10/25/2022 Active azelastine hydrochloride 0.137 mg/actuat metered dose nasal spray (15 sources) Histamine-1 Receptor Antagonist Start: 11-08-2023 End: 11-04-2024 take 2 spray(s) nasal route in the morning azelastine (Astelin) 0.1 % nasal spray Indications: Non-seasonal allergic rhinitis, unspecified trigger Administer 2 sprays into each nostril in the morning and 2 sprays before bedtime. 90 mL 1 05/08/2024 Active cholecalciferol 0.025 mg oral capsule (13 sources) Vitamin D take 1 capsule by mouth once daily cholecalciferol (Vitamin D-3) 25 MCG (1000 UT) capsule Take 1 capsule by mouth 1 (one) time each day at the same time. Active fexofenadine hydrochloride 180 mg oral tablet (13 sources) Histamine-1 Receptor Antagonist take 1 tablet by mouth in the morning fexofenadine (Karla) 180 MG tablet Take 180 mg by mouth in the morning. Active FIBER, GUAR GUM, PO (13 sources) take 4 g by mouth once daily FIBER, GUAR GUM, PO Take 4 g by mouth Daily Active ibuprofen 200 mg oral tablet (13 sources) Nonsteroidal Anti-inflammatory Drug take 1 tablet by mouth every eight hours as needed for pain ibuprofen 200 MG tablet Take 200 mg by mouth every 8 (eight) hours if needed for moderate pain. Active metFORMIN hydrochloride 500 mg oral tablet (6 sources) Biguanide Start: 12-05-2024 End: 01-04-2025 take 1 tablet by mouth in the morning metFORMIN (Glucophage) 1000 MG tablet Indications: Prediabetes Take 1 tablet (1,000 mg) by mouth in the morning and 1 tablet (1,000 mg) in the evening. Take with meals. 60 tablet 12/05/2024 01/04/2025 Active Start: 12-05-2024 End: 01-04-2025 take 1 tablet by mouth in the morning metFORMIN (Glucophage) 500 MG tablet Indications: Prediabetes Take 1 tablet (500 mg) by mouth in the morning and 1 tablet (500 mg) in the evening. Take before meals. 60 tablet 12/05/2024 01/04/2025 Active Start: 12-05-2024 End: 01-04-2025 take 1 tablet by mouth in the morning metFORMIN (Glucophage) 850 MG tablet Indications: Prediabetes Take 1 tablet (850 mg) by mouth in the morning and 1 tablet (850 mg) in the evening. Take before meals. 60 tablet 12/05/2024 01/04/2025 Active Misc Natural Products (ELDERBERRY ZINC/VIT C/IMMUNE MT) (13 sources) take 1 tablet by richard th in the morning Misc Natural Products (ELDERBERRY ZINC/VIT C/IMMUNE MT) Use 1 tablet in the mouth or throat in the morning. Active Multiple Vitamin (multivitamin) capsule (13 sources) take 1 capsule by mo uth in the morning Multiple Vitamin (multivitamin) capsule Take 1 capsule by mouth in the morning. Active Completed/Discontinued Medications Medication Drug Class(es) Dates Sig (Normalized) Sig (Original) atorvastatin 80 mg oral tablet (19 sources) HMG-CoA Reductase Inhibitor Start: 04-06-2024 End: 05-08-2024 take 1 tablet by mouth in the morning atorvastatin (Lipitor) 40 MG tablet Take 40 mg by mouth in the morning. 04/06/2024 05/08/2024 Discontinued (Other) Start: 11-29-2023 End: 06-08-2025 take 1 tablet by mouth at bedtime atorvastatin (Lipitor) 80 MG tablet Indications: Mixed hyperlipidemia Take 1 tablet (80 mg) by mouth at bedtime 90 tablet 1 05/08/2024 12/10/2024 Discontinued (Reorder) montelukast 10 mg oral tablet (17 sources) Leukotriene Receptor Antagonist Start: 11-08-2023 End: 06-08-2025 take 1 tablet by mouth at bedtime montelukast (Singulair) 10 MG tablet Indications: Mild intermittent asthma without complication (HCC) Take 1 tablet (10 mg) by mouth at bedtime 90 tablet 1 05/08/2024 12/10/2024 Discontinued (Reorder) Problems Active Problems Problem Classification Problem Date Documented Date Episodic/Chronic Asthma (19 sources) Mild intermittent asthma; Translations: [Mild intermittent asthma, uncomplicated] Onset: 09-28-2022 09-28-2022 Chronic Cardiac dysrhythmias (4 sources) Palpitations; Translations: [Palpitations] 08-30-2024 Episodic Diabetes mellitus without complication (9 sources) Hyperglycemia; Translations: [Impaired fasting glucose] Onset: 11-28-2024 05-08-2024 Episodic Disorders of lipid metabolism (19 sources) Mixed hyperlipidemia; Translations: [Mixed hyperlipidemia] Onset: 09-28-2022 09-28-2022 Chronic Heart valve disorders (4 sources) Heart murmur; Translations: [Cardiac murmur, unspecified] 08-30-2024 Episodic Menopausal disorders (20 sources) Disorder associated with menstruation AND/OR menopause; Translations: [Menopausal and female climacteric states] Onset: 09-28-2022 09-28-2022 Chronic Other liver diseases (15 sources) Fatty (change of) liver, not elsewhere classified; Translations: [Other chronic nonalcoholic liver disease] Onset: 09-28-2022 09-28-2022 Chronic Other nutritional; endocrine; and metabolic disorders (17 sources) Cholesterol level - finding; Translations: [Lipoprotein deficiency] Onset: 09-28-2022 09-28-2022 Chronic Other nutritional; endocrine; and metabolic disorders (17 sources) Obesity caused by energy imbalance; Translations: [Morbid (severe) obesity due to excess calories] Onset: 09-28-2022 09-28-2022 Chronic Other nutritional; endocrine; and metabolic disorders (17 sources) Body mass index 40+ - severely obese; Translations: [Body mass index (BMI) 40.0-44.9, adult] Onset: 10-31-2023 10-31-2023 Chronic Other screening for suspected conditions (not mental disorders or infectious disease) (8 sources) Encounter for screening mammogram for malignant neoplasm of breast; Translations: [Patient encounter status] Onset: 11-10-2021 Episodic Other upper respiratory disease (15 sources) Allergic rhinitis; Translations: [Allergic rhinitis, unspecified] [...] Documented Da te Episodic/Chronic Acquired foot deformities (13 sources) Pronation deformity of the foot; Translations: [Other acquired deformities of right foot] Onset: 09-28-2022 09-28-2022 Episodic Allergic reactions (13 sources) Chronic eczema; Translations: [Dermatitis, unspecified] Onset: 09-28-2022 09-28-2022 Episodic Mood disorders (13 sources) Mood disorders Onset: 08-30-2023 Resolved: 08-30-2024 08-30-2023 Other ear and sense organ disorders (13 sources) Hearing loss of right ear; Translations: [Unspecified hearing loss, right ear] Onset: 09-28-2022 Resolved: 08-30-2023 08-30-2023 Chronic Other nutritional; endocrine; and metabolic disorders (13 sources) Lipoprotein deficiency disorder; Translations: [Lipoprotein deficiency] Onset: 06-11-2017 Resolved: 08-30-2023 08-30-2023 Chronic Results Test Name Value Interpretation Reference Range Facility [facility] HEMOGLOBIN A1Con 025 Glucose [Mass/Vol] 117 mg/dL [facility] HbA1c (Bld) [Mass fraction] 5.7 % 4.5 - 6.2 % [facility] Comment on above: ADA RECOMMENDED LIMI T 4.0 - 6.0 ADA THERAPEUTIC TARGET < 7.0 ACTION SUGGESTED > 7.0 [facility] CA ECHO DOPPLER COMPLETEon 0 10-31-2024 [place] [address] Cardiology Report Signed Patient: ALYSSA CARDOZA MR#: [id number] : 1960 Acct:[id number] Age/Sex: 64 / F ADM Date: 10/30/24 Loc: CARD Attending Dr: LUIS VILLA Ordering Physician: LUIS VILLA Date of Service: 10/30/24 Procedure(s): CA echo doppler complete Accession Number(s): [id number] cc: LUIS VILLA Patient Name: ALYSSA CARDOZA MR#: [id number] : 1960 Exam Date: 10/30/2024 Ordering Doctor: [...] By: Derian Rodrigues (more content not included)... [facility] Radiology, Radiologist, MD - 10/31/2024 [place] [address] Cardiology Report Signed Patient: ALYSSA CARDOZA MR#: [id number] : 1960 Acct:[id number] Age/Sex: 64 / F ADM Date: 10/30/24 Loc: CARD Attending Dr: LUIS VILLA Ordering Physician: LUIS VILLA Date of Service: 10/30/24 Procedure(s): CA echo doppler complete Accession Number(s): [id number] cc: LUIS VILLA Patient Name: ALYSSA CARDOZA MR#: [id number] : 1960 Exam Date: 10/30/2024 Ordering Doctor: [...] Rodrigues M.D. 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 Admission #: [id number] Family : Order #: [id number] CLICK HERE TO VIEW EXAM RADIOLOGY REPORT [...] lung cancer at age 58. LOCATION: [facility] BREAST COMPOSITION: Scattered areas fibroglandular density. [...] M.D. on 11/11/2021 at 12:39 Normal [facility] Vital Signs Date Time Vital Sign Value Performing Clinician Faci lity 12-05-2024 15:24-0400 Body height 161.3 cm Luis Villa MD Work Phone: [facility] 12-05-2024 15:24-0400 Body mass index (BMI) [Ratio] 40.8 kg/m2 Luis Villa MD Work Phone: [facility] 12-05-2024 15:24-0400 Body weight 106.14 kg Luis Villa MD Work Phone: [facility] 08-30-2024 10:01-0400 Body height 161.3 cm Luis Villa MD Work Phone: [facility] 08-30-2024 10:01-0400 Body mass index (BMI) [Ratio] 40.89 kg/m2 Luis Villa MD Work Phone: [facility] 08-30-2024 10:01-0400 Body weight 106.37 kg Luis Villa MD Work Phone: [facility] 08-30-2024 10:01-0400 Diastolic blood pressure 70 mm[Hg] Luis Villa MD Work Phone: [facility] 08-30-2024 10:01-0400 Heart rate 72 /min Luis Villa MD Work Phone: [facility] 08-30-2024 10:01-0400 SaO2% (BldA) [Mass fraction] 96 % Luis Villa MD Work Phone: [facility] 08-30-2024 10:01-0400 Systolic blood pressure 120 mm[Hg] Luis Villa MD Work Phone: [facility] 05-08-2024 13:57-0500 Body height 161.3 cm Luis Villa MD Work Phone: [facility] 05-08-2024 13:57-0500 Heart rate 84 /min Luis Villa MD Work Phone: [facility] 05-08-2024 13:57-0500 SaO2% (BldA) [Mass fraction] 97 % Luis Villa MD Work Phone: [facility] Encounters Encounter Date Encounter Type Care Provider Facility Start: 12-05-2024 End: 12-05-2024 Office outpatient visit 25 minutes Luis Villa MD Work Phone: [address] Comment on above: Prediabetes (Primary Dx); Mixed hyperlipidemia ; Low HDL (under 40) ; NAFLD (nonalcoholic fatty liver disease); Mild intermittent asthma without complication (HCC); Morbid (severe) obesity due to excess calories ([facility]); Body mass index (BMI) 40.0-44.9, adult ([facility]-HCC) Start: 12-05-2024 End: 12-05-2024 ambulatory LUIS VILLA Not Available Start: 12-05-2024 End: 12-05-2024 Bamboo flowsheet Luis Villa MD Work Phone: [address] Start: 12-05-2024 End: 12-05-2024 Bamboo flowsheet Luis Villa MD Work Phone: [address] Start: 11-28-2024 End: 11-28-2024 [facility] Result Encounter Luis Villa MD Work Phone: [facility] Unsolicited Start: 11-28-2024 End: 11-28-2024 [facility] Result Encounter Luis Villa MD Work Phone: [facility] Unsolicited Start: 11-28-2024 End: 11-28-2024 Follow-up encounter Luis Villa MD Work Phone: [facility] [place] [facility] Comment on above: Prediabetes (Primary Dx) Start: 11-01-2024 End: 11-01-2024 Follow-up encounter Luis [...] Mixed hyperlipidemia (CMS/HCC); Low HDL (under 40) (CMS/HCC) Start: 08-30-2024 End: 08-30-2024 ambulatory LUIS VILLA Not Available Start: 05-08-2024 End: 05-08-2024 Bamboo tiffany Villa MD Work Phone: [facility] Start: 05-08-2024 End: 05-08-2024 Bamboo flowsheet Luis Villa MD Work Phone: [facility] Start: 05-08-2024 End: 05-08-2024 Office outpatient visit 25 minutes Luis Villa MD Work Phone: [facility] Comment on above: Non-seasonal allergi c rhinitis, unspecified trigger (Primary Dx); Mild intermittent asthma without complication (CMS/HCC); Mixed hyperlipidemia (CMS/HCC); Elevated fasting blood sugar Start: 05-08-2024 End: 05-08-2024 ambulatory LUIS VILLA Not Available Start: 11-10-2021 End: 11-11-[address] LUIS VILLA Facility: Procedures Date Procedure Procedure Detail Performing Clinician Start: 11-28-2024 MLR HEMOGLOBIN A1C Edwa bryanna Villa MD Work Phone: Start: 10-31-2024 CA ECHO DOPPLER COMPLETE Luis Villa MD Work Phone: Start: 11-24-2023 Mammography Luis joy MD Work Phone: Start: 01-04-2022 Colonoscopy Luis joy MD Work Phone: Plan of Treatment Date Care Activity Detail Author Start: 01-05-2032 Screening for malign ant neoplasm of colon [facility] Start: 08-30-2025 Medicare Annual Well ness (AWV) Medicare Annual Wellness (AWV) [facility] Start: 08-23-2025 Pneumococcal Vaccine : 65+ Years (1 of 2 - PCV) Pneumococcal Vaccine: 65+ Years (1 of 2 - PCV) [facility] Comment on above: Postponed from 08/16 (Patient Refused) Start: 05-07-2025 End: 12-05-2025 Comprehensive metabolic 2000 panel - Serum or Plasma Comprehensive metabolic panel Lab Routine Prediabetes NAFLD (nonalcoholic fatty liver disease) Expected: 05/07/2025, Expires: 12/05/2025 [facility] Work Phone: Comment on above: Expected: 05/07/2025 , Expires: 12/05/2025 Start: 05-07-2025 End: 12-05-2025 Hemoglobin A1c/Hemoglobin.total in Blood Hemoglobin A1c Lab Routine Prediabetes Expected: 05/07/2025, Expires: 12/05/2025 [facility] Comment on above: Expected: 05/07/2025 , Expires: 12/05/2025 Start: 05-07-2025 End: 12-05-2025 Lipid 1996 panel - Serum or Plasma Lipid panel Lab Routine Mixed hyperlipidemia Low HDL (under 40) Expected: 05/07/2025, Expires: 12/05/2025 [facility] Comment on above: Expected: 05/07/2025 , Expires: 12/05/2025 Start: 02-01-2025 Screening for malign ant neoplasm of colon FIT [facility] Start: 12-17-2024 Influenza vaccination [facility] Start: 12-05-2024 End: 12-05-2024 Patient encounter procedure 12/05/2024 3:30 PM EDT Office Visit [place] [address] [facility] [address] [facility] [address] [place] [address] Luis Villa MD [address] [facility] [address] [place] [address] Comment on above: Arrived Start: 11-23-2024 Screening for malign ant neoplasm of breast Mammogram [facility] Start: 10-06-2024 End: 05-08-2025 Comprehensive metabolic 2000 panel - Serum or Plasma Comprehensive metabolic panel Lab Routine Elevated fasting blood sugar Expected: 10/06/2024 (Approximate), Expires: 05/08/2025 [facility] Comment on above: Expected: 10/06/2024 (Approximate), Expires: 05/08/2025 Start: 10-06-2024 End: 05-08-2025 Hemoglobin A1c/Hemoglobin.total in Blood Hemoglobin A1c Lab Routine Elevated fasting blood sugar Expected: 10/06/2024 (Approximate), Expires: 05/08/2025 [facility] Work Phone: Comment on above: Expected: 10/06/2024 (Approximate), Expires: 05/08/2025 Start: 10-06-2024 End: 05-08-2025 Lipid 1996 panel - Serum or Plasma Lipid panel Lab Routine Mixed hyperlipidemia (CMS/HCC) Expected: 10/06/2024 (Approximate), Expires: 05/08/2025 [facility] Comment on above: Expected: 10/06/2024 (Approximate), Expires: 05/08/2025 Start: 08-30-2024 End: 08-30-2026 Echocardiogram 2D complete Echocardiogram 2D complete Echocardiography Routine Heart murmur Palpitations Expected: 08/30/2024 (Approximate), Expires: 08/30/2026 [facility] Work Phone: Comment on above: Expected: 08/30/2024 (Approximate), Expires: 08/30/2026 Start: 08-30-2024 End: 08-30-2024 Patient encounter procedure 08/30/2024 10:00 AM EDT Office Visit [facility] [address] [facility] [address] [place] [address] Luis Villa MD [address] [facility] [address] [place] [address] (Fax) Encounter for Medicare annual wellness exam; Advance directive in chart; Encounter for screening for other disorder; Screening for alcohol problem; Screening mammogram, encounter for; Morbid (severe) obesity due to excess calories ([facility]/HCC) [facility] Comment on above: Encounter for Medica annual wellness exam; Advance directive in chart; Encounter for screening for other disorder; Screening for alcohol problem; Screening mammogram, encounter for; Morbid (severe) obesity due to excess calories (CMS/HCC) Start: 08-29-2024 Medicare Annual Well ness (AWV) Medicare Annual Wellness (AWV) [facility] Start: 05-08-2024 End: 05-08-2024 Patient encounter procedure 05/08/2024 2:00 PM EST Office Visit [facility] [address] [place] [id number] Luis Villa MD [address] [place] [address] (Fax) Arrived [facility] Comment on above: Arrived Start: 12-18-2023 Influenza vaccination Influenza Vacc ine (#1) [facility] Start: 1988 Screening for malign ant neoplasm of cervix HPV/Cotest [facility] Start: 08-17-1979 Screening for malign ant neoplasm of cervix Pap Smear [facility] Start: 1964 Pneumococcal Vaccine : 65+ Years (1 of 2 - PCV) Pneumococcal Vaccine: 65+ Years (1 of 2 - PCV) [facility] Start: 1960 Screening for malign ant neoplasm of colon [facility] Immunizations Immunization Date Immunization Notes Care Provider [facility] 04-04-2021 zoster vaccine recombinant Luis Vlila MD Work Phone: [facility] 02-03-2021 zoster vaccine recombinant Luis Villa MD Work Phone: [facility] 01-20-2021 influenza, seasonal, injectable Luis Villa MD Work Phone: [facility] 01-20-2021 influenza virus vacc ine, unspecified formulation Luis Villa MD Work Phone: [facility] 01-11-2020 influenza, injectabl e, quadrivalent, preservative free Luis Villa MD Work Phone: [facility] 02-12-2019 influenza, injectabl e, quadrivalent, preservative free Luis Villa MD Work Phone: [facility] 02-05-2018 influenza, injectabl e, quadrivalent, preservative free Luis Villa MD Work Phone: [facility] 02-07-2017 influenza, high dose seasonal, preservative-free Luis Villa MD Work Phone: [facility] 12-30-2014 influenza, injectabl e, quadrivalent, preservative free Luis Villa MD Work Phone: [facility] Payers Date Payer Category Payer Worker's Compensation [facility] [employer] [id number] 2023 Medicare [id number] 1960 Unknown [id number] 1960 Unknown [id number] 1960 Unknown [id number] 1960 Unknown [id number] Unknown [id number] Social History Date Type Detail Facility Start: 09-28-2022 Tobacco smoking stat [facility] Never smoked tobacco [facility] Start: 09-28-2022 Tobacco use and exposure Smoke less tobacco non-user [facility] Start: 11-08-2023 End: 12-05-2024 Alcoholic beverage intake Lifetime non-drinker (finding) [facility] Start: 11-08-2023 End: 08-30-2024 History of Social function [facility] Start: 11-08-2023 End: 08-30-2024 Tobacco use panel [facility] Start: 09-29-2022 Education 21 [facility] Start: 09-29-2022 Alcohol Comment Caffeine intak e: 3-4 cups per day of coffee and soda [facility] Start: 1960 Sex assigned at Not on file [facility] Functional Status Date Assessment Result Facility 08-30-2024 Patient Health [facility] ionnaire 2 item (PHQ-2) [Reported] [facility] History of Present illness Narrative 12-05-2024 Luis Villa MD - 12/05/2024 3:30 PM EDT Note Date & Type Note Facility 12-05-2024 History of Presen t illness Narrative Images from the original note were not included. Patient ID: Alyssa Cardoza is a 64 y.o. female who presents for: Review Results: Patient is here in the office today to review recent labs or diagnostic imaging with Dr Yann Villa per his request. Based on the results they will also review treatment options. Please see labs scanned. Objective The patient is pleasant and in no acute distress The patient has good eye contact and clear speech 12/05/2024 3:24 PM 08/30/2024 10:01 AM 05/08/2024 1:57 PM 11/08/2023 9:30 AM Vitals BMI 40.8 kg/m2 40.89 kg/m2 41.15 kg/m2 41.15 kg/m2 BSA (m2) 2.18 m2 2.18 m2 2.19 m2 2.19 m2 Systolic 120 Diastolic 70 Heart Rate 72 84 74 SpO2 96 % 97 % 96 % Height (in) 5' 3.5 5' 3.5 5' 3.5 5' 3.5 Weight (lb) 234 234.5 236 Visit Report Report Report Report Report Allergies Allergen Reactions Cephalexin Rash Glycerin Other Reaction(s): Unknown Current Outpatient Medications on File Prior to Visit Medication Sig Dispense Refill albuterol HFA 90 mcg/act inhaler Inhale 1 puff in the morning and 1 puff at noon and 1 puff in the evening and 1 puff before bedtime. 18 g 5 azelastine (Astelin) 0.1 % nasal spray Administer [...] (eight) hours if needed for moderate pain. Misc Natural Products (ELDERBERRY ZINC/VIT C/IMMUNE MT) Use 1 tablet in the mouth or throat in the morning. Multiple Vitamin (multivitamin) capsule Take 1 capsule by mouth in the morning. No current facility-administered medications on file prior to visit. 1. Prediabetes (Primary) New, chronic problem, unstable, complex medical decision making I reviewed this with them, and educated them about the labs and there meanings. We discussed the concepts of insulin resistance, glucose intolerance (pre-diabetes), or Diabetes Mellitus as appropriate, and the co-morbidities associated with these diagnoses. We discussed treatment options including instruction where appropriate for diet, exercise, stress reduction, medication, and supplements. I educated them that these concepts are not traditional allopathic concepts but considered alternative by many providers. In prescribing any new medication, consideration of the following encompasses moderate decision making; the patient s current prescriptions and supplements, the patient s current allergies and medication intolerances, the patient s current medical conditions, and potential drug interactions. The patient was given a chance to ask questions today and all questions were answered. The patient is to contact us, preferably by using the patient portal, or call if any other questions arise or if any problems occur with the new medication. We have also discussed that any supplements recommended have not undergone review or approval by the FDA and, therefore, have not been documented to be safe or effective to diagnose, treat, prevent, mitigate, or cure any condition or disease. New prescription that I have discussed the reasons for titrating in how to titrate. The patient is to call me 2-3 weeks into the 1000 mg dose with an update on tolerance. If tolerating I will give her a 90 day prescription at this point and recheck labs in a proximally 2 months. - metFORMIN (Glucophage) 500 MG tablet; Take 1 tablet (500 mg) by mouth in the morning and 1 tablet (500 mg) in the evening. Take before meals. Dispense: 60 tablet; Refill: 0 - metFORMIN (Glucophage) 850 MG tablet; Take 1 tablet (850 mg) by mouth in the morning and 1 tablet (850 mg) in the evening. Take before meals. Dispense: 60 tablet; Refill: 0 - metFORMIN (Glucophage) 1000 MG tablet; Take 1 tablet (1,000 mg) by mouth in the morning and 1 tablet (1,000 mg) in the evening. Take with meals. Dispense: 60 tablet; Refill: 0 - Comprehensive metabolic panel; Future - Hemoglobin A1c; Future - Comprehensive metabolic panel - Hemoglobin A1c 2. Mixed hyperlipidemia We discussed she is close to goal as I can get her. The only ray she will raise her HDL levels which is an independent risk factor for cardiovascular disease is by the lifestyle changes we discussed on multiple occasions. - Lipid panel; Future - Lipid panel - atorvastatin (Lipitor) 80 MG tablet; Take 1 tablet (80 mg) by mouth at bedtime Dispense: 90 tablet; Refill: 1 3. Low HDL (under 40) As noted above - Lipid panel; Future - Lipid panel 4. NAFLD (nonalcoholic fatty liver disease) I discussed with her the chronic nature of this and that the progression would be to fibrosis/cirrhosis of the liver. This was also a comorbid condition that was taken into evaluation for the reason of starting her medications. - Comprehensive metabolic panel; Future - Comprehensive metabolic panel 5. Mild intermittent asthma without complication (HCC) Chronic problem, stable, doing well with the medication. Rarely needing rescue inhaler. - montelukast (Singulair) 10 MG tablet; Take 1 tablet (10 mg) by mouth at bedtime Dispense: 90 tablet; Refill: 1 6. Morbid (severe) obesity due to excess calories ([facility]) Chronic problem that is stable. She has actually lost 2 lb within approximately 1 year. I congratulated her because she also stopped the weight gain. I did encourage her to work more towards this goal of decreasing the obesity. 7. Body mass index (BMI) 40.0-44.9, adult ([facility]) Defines the morbid obesity Please Note: Portions of this chart may have been created using voice recognition software. Occasionally a wrong-word or sound-like substitutions may have occurred due to inherent limitations of the voice recognition software. Please read the chart carefully and recognize, using context, where the substitutions may have occurred. documented in this encounter [facility] Telephone encounter Note 11-28-2024 Telephone Encounter - Luis Villa MD - 11/28/2024 11:14 AM EDT Note Date & Type Note Facility 11-28-2024 Telephone encount er Note Her blood sugars elevated to 111. She has had previous elevation in her blood sugars. Her A1c test is to goal at 5.7. This gives her diagnosis of prediabetes. In consideration of her fatty liver disease and the morbid obesity, I do think she should consider metformin. If she is interested in being treated with metformin she would need an office visit for this. Her cholesterol HDL which is the good cholesterol is somewhat low. The blood sugar and this would respond to lifestyle changes. [facility] Note 11-28-2024 Telephone Encounter - Luis Villa MD - 11/28/2024 11:14 AM EDT Note Date & Type Note Facility 11-28-2024 Miscellaneous Notes Formattin g of this note might be different from the original. Her blood sugars elevated to 111. She has had previous elevation in her blood sugars. Her A1c test is to goal at 5.7. This gives her diagnosis of prediabetes. In consideration of her fatty liver disease and the morbid obesity, I do think she should consider metformin. If she is interested in being treated with metformin she would need an office visit for this. Her cholesterol HDL which is the good cholesterol is somewhat low. The blood sugar and this would respond to lifestyle changes. 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 Hearing Screening: Not done Cognitive Screening Self Assessment: No concerns rasied by family members, friends, or caretakers Three Word Registration: Banana, [place], Chair Clock Drawing: Normal Clock - 2 Three Word Recall: All 3 words correct - 3 Total Score (0-5 Points): 5 Pain Assessment Pain Score: 2 HISTORIES: PAST MEDICAL HISTORY: Past Medical History: Diagnosis Date Abnormal mammogram Abnormal mammogram Allergic rhinitis unspecified Appendicitis Arthritis Asthma Body mass index (BMI) of 37.0-37.9 in adult Breast lump Bronchitis Chicken pox COVID-19 2020 Diabetes ([facility]) Family history of cancer Hx of migraine headaches Hypertension (CMS/HCC) Kidney disease Liver disease Measles Mixed hyperlipidemia (CMS/HCC) Mumps Obesity Pneumonia Postmenopausal atrophic vaginitis Steatohepatitis, nonalcoholic Tonsillitis Vaginal infection SURGICAL HISTORY: Past Surgical History: Procedure Laterality Date BREAST BIOPSY calcium iodine deficiency CARPAL [facility] SOCIAL HISTORY: [...] 90 tablet; Refill: 1 2. Mixed hyperlipidemia (CMS/[facility]) Chronic problem. There is a discrepancy between [...] Comprehensive metabolic panel documented in this encounter [facility] Evaluation note Note Date & Type Note Facility Evaluation note Diagnosis Non-seasonal allergic rhinitis, unspecified trigger- Primary Mild intermittent asthma without complication (CMS/HCC) Mixed hyperlipidemia (CMS/HCC) Mixed hyperlipidemia Elevated fasting blood sugar Impaired fasting glucose documented in this encounter [facility] Evaluation note Note Date & [...] (under 40) (CMS/HCC) documented in this encounter [facility] Evaluation note Note Date & Type Note Facility Evaluation note Diagnosis Prediabetes- Primary Other abnormal glucose documented in this encounter [facility] Evaluation note Note Date & Type Note Facility Evaluation note Diagnosis Prediabetes- Primary Other abnormal glucose Mixed hyperlipidemia Mixed hyperlipidemia Low HDL (under 40) NAFLD (nonalcoholic fatty liver disease) Mild intermittent asthma without complication (HCC) Morbid (severe) obesity due to excess calories (CMS-HCC) Body mass index (BMI) 40.0-44.9, adult (CMS-HCC) documented in this encounter [facility] Summary Purpose Family History No Family History Records FoundNo Family History Records Found Advance Directives Documents on File Type Date Recorded Patient Sap Sd Analyst Expl anation Power of Special Effects Specialist 05/16/2023 9:27 AM 03-31 Power Of Special Effects Specialist Advance Directives and Living Will 05/16/2023 9:26 AM 2009-09-17 Living Wi ll Documents on File Type Date Recorded Patient Sap Sd Analyst Expl anation Power of Special Effects Specialist 05/16/2023 9:27 AM 03-31 Power Of Special Effects Specialist Advance Directives and Living Will 05/16/2023 9:26 AM 2009-09-17 Living Wi ll Additional Source Comments INFORMATION SOURCE (unrecogn ized section and content) DATE CREATED AUTHOR 11/17/2021 [facility] DATE CREATED AUTHOR 'S ORGANIZ ATION 12/07/2024 [facility] dical Specialists EPIC Care Teams (unrecognized sec tion and content) Pump Servicer Relationship Specialty Start Date End Date Luis Villa MD (Fax) PCP - General Family Medicine 09/22/22 Pump Servicer Relationship Specialty Start Date End Date Luis Villa MD (Fax) PCP - General Family Medicine 09/22/22 Pump Servicer Relationship Specialty Start Date End Date Luis Villa MD (Fax) PCP - General Family Medicine 09/22/22 Pump Servicer Relationship Specialty Start Date End Date Luis Villa MD (Fax) PCP - General Family Medicine 09/22/22 Pump Servicer Relationship Specialty Start Date End Date Luis Villa MD (Fax) PCP - General Family Medicine 09/22/22 Pump Servicer Relationship Specialty Start Date End Date Luis Villa MD (Fax) PCP - General Family Medicine 09/22/22 Pump Servicer Relationship Specialty Start Date End Date Luis Villa MD [address] [phone] (Fax) PCP - General Family Medicine 12/03/24 Pump Servicer Relationship Specialty Start Date End Date Luis Villa MD [address] [phone] (Fax) PCP - General Family Medicine 12/03/24 Reason for Visit (unrecogniz ed section and content) Reason Comments Asthma Reason Comments Annual Exam Reason Comments Results FOR RECORDS PERTAINING TO PATIENTS WHO ARE [...] BE BASED ON THE PRIMARY CLINICAL RECORDS. [facility] [employer] [facility]. provides no warranty or guarantee of the accuracy or completeness of information in this document.
--- NOTE | 2025-01-11 09:08 | MM_ITS ---
Patient Name: ISA DUMONT MR#: [id number] : 1960 Exam Date: 01/11/2025 Ordering Doctor: DR MARIBEL VILLA . RADIOLOGY REPORT PROCEDURE: MM TOMOSYNTHESIS SCREENING BI COMPARISON: MM TOMOSYNTHESIS SCREENING BI, 11/24/2023. MM TOMOSYNTHESIS SCREENING BI, 11/22/2022. MG MAMM SCREEN 3D LISANDRA CAD, 11/10/2021. MG MAMM LT UNI W CAD DIG, 10/11/2012. INDICATIONS: Screening Calculator Name NCI Breast Cancer Risk Assessment Tool 5 Year Breast Cancer Risk 3.00% Lifetime Breast Cancer Risk 10.60% Personal Breast Cancer No Personal Ovarian Cancer No Treatments None Family Cancers Mother with lymphoma cancer at age 67; Grandfather-paternal with lung cancer at age ~60; Brother with colon cancer at age 63; Father with skin cancer at age 75. LOCATION: [facility] [place] BREAST COMPOSITION: There are scattered areas of fibroglandular density. FINDINGS: RIGHT BREAST: No significant suspicious finding. Similar focal asymmetries are noted along with benign-appearing calcifications. LEFT BREAST: No significant suspicious finding. There is a similar biopsy clip on the left. DIAGNOSTIC CATEGORY 2--BENIGN FINDING. NO CHANGE FROM COMPARISON. RECOMMENDATIONS: ROUTINE MAMMOGRAM AND CLINICAL EVALUATION IN 12 MONTHS. Dictated by: Micah Mann MD on 01/11/2025 at 17:21 Approved by: Micah Mann MD on 01/11/2025 at 17:25
== END 2025-01-11 09:06 | disposition home or self-care (01) ==
LOC: MAMMO 09:05
PROVIDERS: PCP Family Medicine; Visit Provider Family Medicine
DX: Z12.31 Encounter for screening mammogram for malignant neoplasm of breast (principal); Z80.7 Family history of other malignant neoplasms of lymphoid, hematopoietic and related tissues; Z80.1 Family history of malignant neoplasm of trachea, bronchus and lung; Z80.0 Family history of malignant neoplasm of digestive organs; Z80.8 Family history of malignant neoplasm of other organs or systems
CPT/HCPCS: 77063; 77067